=== PATIENT | female | born 1955 | race African-American/Black ===

== ENCOUNTER 2016-12-17 14:03 | Emergency (ER) | payer OTHER ==
[~2016-12-17] VITALS: Ht 154.9 cm; Wt 65.8 kg
[~2016-12-17 14:03] MED LIST: ALBUTEROL SULF8.5 GM INH; ATENOLOL; ATENOLOL50 MG PO; FUROSEMIDE40 MG PO; HYZAAR; HYZAAR 50-12.51 EACH ORAL; IBUPROFEN600 MG ORAL; IBUPROFEN600 MG PO; KEFLEX500 MG ORAL; LASIX; MACROBID100 MG ORAL; NAPROSYN500 M1 ORAL; NORCO 5-325 TA1 EACH ORAL; OMEPRAZOLE20 M2 PO; OMNIPRED10 ML OP; PRILOSEC; PRILOSEC20 MG ORAL; PROAIR HFA8.5 GM INH; ROBITUSSIN COU118 M4 PO; TEMAZEPAM15 MG ORAL; TESSALON PERLE100 M2 ORAL; ZITHROMAX250 MG ORAL; ZOFRAN4 MG ORAL
--- NOTE | 2016-12-17 14:54 | Emergency Room Report ---
History of Present Illness General Chief Complaint: Multiple Trauma/Fall Source: Patient Present Illness HPI Patient presents with reports of a fall she states that she was going up some stairs she fell backwards hitting left side of her body This happened on Saturday Patient complains mainly of pain to the left shoulder Left lower back area Denies any loss of consciousness Denies any vomiting or diarrhea denies any fevers or chills Describes a fairly purely mechanical fall in nature Allergies: Coded Allergies: NATALIE INHIBITORS (Verified Allergy, Unknown, Anaphylaxis, 09/01/15) Swollen tongue, SOB IBUPROFEN (Verified Allergy, Unknown, 06/12/16) Patient History Past Medical History: see triage record Pertinent Family History: none Reviewed Nursing Documentation: PMH: Agreed, PSxH: Agreed Nursing Documentation-PMH Hx Cardiac Problems: No Hx Hypertension: Yes Hx Asthma: Yes Hx Diabetes: No Hx Gastrointestinal Problems: Yes - unspecified Review of Systems All Other Systems: negative except mentioned in HPI Physical Exam Vital Signs Date Time Temp Pulse Resp B/P Pulse Ox O2 Delivery O2 Flow Rate FiO2 12/17/16 14:29 98.1 75 16 148/76 99 Room Air Sp02 EP Interpretation: reviewed, normal General Appearance: well appearing, no apparent distress Head: normocephalic, atraumatic Eyes: bilateral eye EOMI, bilateral eye PERRL ENT: hearing grossly normal, normal pharynx, TMs + canals normal, uvula midline Neck: full range of motion, supple, no meningismus, no bony tend Respiratory: lungs clear, normal breath sounds, no rhonchi, no respiratory distress, no retraction, no accessory muscle use Cardiovascular #1: normal peripheral pulses, regular rate, rhythm, no edema, no gallop, no JVD, no murmur Gastrointestinal: normal bowel sounds, non tender, soft, no mass, no organomegaly, non-distended, no guarding, no hernia, no pulsatile mass, no rebound Genitourinary: no CVA tenderness Musculoskeletal: other - Minor bruising is noted to the left anterior shoulder patient is able to flex however has tenderness on palpation of the proximal anterior area, discomfort also in the left paraspinal L1-L2 region, mild ecchymosis left lower abdomen, inguinal region, Neurologic: oriented x3, responsive, sample processor III-XII nml as tested, sensory intact , other - Patient has previous trauma to the ankle, otherwise ambulate with a walker without any obvious focal deficit Psychiatric: mood/affect normal Skin: warm/dry, palpation normal Lymphatic: normal inspection, no adenopathy Medical Decision Making Diagnostic Impression: Primary Impression: Multiple injuries due to trauma Additional Impressions: Shoulder contusion Back contusion ER Course Given the patient's complaints imaging studies were obtained No obvious acute pathology is found patient is ambulating And stable for close outpatient followup Other X-Ray Diagnostic Results Other X-Ray Diagnostic Results #1: EP Interpretation: Yes Findings: no fractures, no dislocation, no soft tissue swelling Number of Views: 3 - left shoulder Other X-Ray Diagnostic Results #2: EP Interpretation: Yes Findings: no fractures, no dislocation, no soft tissue swelling Number of Views: 3 - L. spine Last Vital Signs Date Time Temp Pulse Resp B/P Pulse Ox O2 Delivery O2 Flow Rate FiO2 12/17/16 14:29 98.1 75 16 148/76 99 Room Air Status: improved Disposition: HOME, SELF-CARE Condition: Improved Scripts Acetaminophen With Codeine (T#3) (TYLENOL #3 TAB*) Y Tab 1 TAB ORAL Q8H Y for For Pain, #10 TAB Prov: SAVANAH BETHEA D.O. 12/17/16 Additional Instructions: Patient is provided with the discharge instructions notified to follow up with primary doctor in the next 2-3 days otherwise return to the er with any worsening symptoms. Please note that this report is being documented using AfterSte[employer] technology. This can lead to erroneous entry secondary to incorrect interpretation by the dictating instrument. SAVANAH BETHEA D.O. Dec 17, 2016 14:54
[2016-12-17] MEDS ORDERED: ACETAMINOPHEN-1 EAC1 ORAL (16:01)
[2016-12-17 16:24] VITALS: BP 145/76
--- NOTE | 2016-12-17 16:27 | Diagnostic Imaging Report ---
Indication: Pain Findings: 3 views of the left shoulder were obtained. Alignment of the left shoulder is normal. No acute fracture is identified. Soft tissues are unremarkable. Impression: Negative left shoulder examination
--- NOTE | 2016-12-17 16:27 | Diagnostic Imaging Report ---
Indication: Back pain Comparison: None Findings: 3 views of the lumbar spine were obtained. Multilevel narrowing of intervertebral disks and associated endplate and Facet osteophytes are present. No malalignment identified. The bones are osteopenic. No acute fracture definitely seen. Impression: Moderate spondylosis. No acute injury appreciated.
[2016-12-17] MEDS ORDERED: Norco 5mg/325mg tab ORAL ONE (16:30)
== END 2016-12-17 16:30 | disposition home or self-care (01) ==
LOC: EMR 15:44
DX: S40.012A Contusion of left shoulder, initial encounter (principal); I10 Essential (primary) hypertension; Z88.6 Allergy status to analgesic agent; W19.XXXA Unspecified fall, initial encounter; Y93.9 Activity, unspecified; Y92.9 Unspecified place or not applicable; S30.0XXA Contusion of lower back and pelvis, initial encounter
CPT/HCPCS: 72020; 99284

== ENCOUNTER 2016-12-24 23:54 | Emergency (ER) | payer OTHER ==
[~2016-12-24] VITALS: Ht 154.9 cm; Wt 65.8 kg
[~2016-12-24 23:54] MED LIST changes: +ACETAMINOPHEN-1 EAC1 ORAL
[2016-12-25 00:45] VITALS: BP 157/90
[2016-12-25] MEDS ORDERED: Oxycodone/Acetaminophen 5-325 ORAL ONE (00:45)
[2016-12-25] MEDS ORDERED: TdaP Vaccine 0.5ml Syr IM ONE (00:45)
[2016-12-25] MEDS ORDERED: SILVADENE20 GM TP (01:19)
[2016-12-25] MEDS ORDERED: COLACE100 MG ORAL (01:22)
[2016-12-25] MEDS ORDERED: PERCOCET 5-3251 EACH ORAL (01:22)
[2016-12-25] MEDS ORDERED: Silver Sulfadiazine Cream 25gm TOPIC ONE (01:30)
[2016-12-25 01:45] VITALS: BP 155/89
[2016-12-25 02:00] VITALS: BP 155/89
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
== END 2016-12-25 02:05 | disposition home or self-care (01) ==
LOC: EMR 12-25 00:43
DX: T22.00XA Burn of unspecified degree of shoulder and upper limb, except wrist and hand, unspecified site, initial encounter (principal); T24.002A Burn of unspecified degree of unspecified site of left lower limb, except ankle and foot, initial encounter; T31.0 Burns involving less than 10% of body surface; J45.909 Unspecified asthma, uncomplicated; I10 Essential (primary) hypertension; Z88.6 Allergy status to analgesic agent; Z88.8 Allergy status to other drugs, medicaments and biological substances; Z23 Encounter for immunization; X11.8XXA Contact with other hot tap-water, initial encounter; Y92.9 Unspecified place or not applicable; Y99.8 Other external cause status
CPT/HCPCS: 90471; 90715; 99284

== ENCOUNTER 2017-01-05 05:38 | Emergency (ER) | payer OTHER ==
[~2017-01-05] VITALS: Ht 154.9 cm; Wt 65.8 kg
[~2017-01-05 05:38] MED LIST changes: +COLACE100 MG ORAL; +PERCOCET 5-3251 EACH ORAL; +SILVADENE20 GM TP
[2017-01-05 05:55] VITALS: BP 159/80
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
[2017-01-05] MEDS ORDERED: NORCO 5-325 TA1 EACH ORAL (06:43)
[2017-01-05 07:23] VITALS: BP 161/81
[2017-01-05 07:24] VITALS: BP 159/80
--- NOTE | 2017-01-05 09:32 | Diagnostic Imaging Report ---
Indication: PAIN Technique: XRAY FOOT MIN 3V LEFT Comparison: None. Findings: The bones are intact. There is no fracture or bone destruction. The visualized joints are normal. There may be a mild bunion deformity of the first metatarsal with soft tissue swelling. Impression: Mild bunion deformity of the first metatarsal with soft tissue swelling. Otherwise negative.
--- NOTE | 2017-01-05 09:32 | Diagnostic Imaging Report ---
Indication: PAIN Technique: XRAY ANKLE MIN 3VWS LEFT Comparison: None. Findings: The bones are intact. There is no fracture or bone destruction. The visualized joints are normal. The soft tissues are unremarkable. Impression: Negative examination.
== END 2017-01-05 07:29 | disposition home or self-care (01) ==
LOC: EMR 06:19
DX: S93.402A Sprain of unspecified ligament of left ankle, initial encounter (principal); S93.602A Unspecified sprain of left foot, initial encounter; X50.1XXA Overexertion from prolonged static or awkward postures, initial encounter; Y92.9 Unspecified place or not applicable; I10 Essential (primary) hypertension; J45.909 Unspecified asthma, uncomplicated; Z88.6 Allergy status to analgesic agent; Z88.8 Allergy status to other drugs, medicaments and biological substances
CPT/HCPCS: 29540; 99284

== ENCOUNTER 2017-01-17 14:16 | Inpatient (IN) | payer OTHER ==
[~2017-01-17] VITALS: Ht 154.9 cm; Wt 65.8 kg
[2017-01-17] MEDS ORDERED: Tylenol #3 tab (300mg/30mg) ORAL ONE (15:00)
[2017-01-17] MEDS ORDERED: Solu-MEDROL 125mg Inj IVP ONE (15:00)
--- NOTE | 2017-01-17 15:04 | Emergency Room Report ---
History of Present Illness General Chief Complaint: Upper Respiratory Illness Source: Patient, Medical Record Present Illness HPI 61 YO F with "asthma" presents for 1 week SOB, cough, chills. hasnt been able to see PMD. Ran out of inhaler. No sick contacts. C/o bilateral ear pressure , sore throat, sinus congestion. Not taking any meds. Allergies: Coded Allergies: NATALIE INHIBITORS (Verified Allergy, Unknown, Anaphylaxis, 09/01/15) Swollen tongue, SOB IBUPROFEN (Verified Allergy, Unknown, 06/12/16) Patient History Past Medical History: COPD Past Surgical History: none Pertinent Family History: none Social History: Denies: alcohol use, drug use, smoking Now: No Immunizations: UTD Reviewed Nursing Documentation: PMH: Agreed, PSxH: Agreed Nursing Documentation-PMH Hx Cardiac Problems: No Hx Hypertension: Yes Hx Asthma: Yes Hx Diabetes: No Review of Systems All Other Systems: negative except mentioned in HPI Physical Exam Vital Signs Date Time Temp Pulse Resp B/P Pulse Ox O2 Delivery O2 Flow Rate FiO2 01/17/17 14:25 98.1 69 16 150/89 99 Room Air Sp02 EP Interpretation: reviewed, abnormal General Appearance: normal inspection, well appearing, no apparent distress, alert, GCS 15, non-toxic Head: normocephalic, atraumatic Eyes: bilateral eye EOMI, bilateral eye PERRL ENT: normal ENT inspection, hearing grossly normal, normal pharynx, no angioedema, normal voice, TMs + canals normal, uvula midline, moist mucus membranes, nasal congestion Neck: normal inspection, full range of motion, supple, no bony tend Respiratory: normal inspection, lungs clear, normal breath sounds, no respiratory distress, no retraction, no accessory muscle use, rhonchi, speaking full sentences, wheezing Cardiovascular #1: regular rate, rhythm, no edema Gastrointestinal: normal inspection, normal bowel sounds, non tender, soft, no guarding, no hernia Genitourinary: no CVA tenderness Musculoskeletal: normal inspection, back normal, normal range of motion, Giulia' s Sign negative Neurologic: normal inspection, alert, oriented x3, responsive, grain origination specialist III-XII nml as tested, motor strength/tone normal, speech normal Psychiatric: normal inspection, judgement/insight normal, mood/affect normal Skin: normal inspection, normal color, no rash Lymphatic: normal inspection Medical Decision Making Diagnostic Impression: Primary Impression: COPD exacerbation Additional Impression: Upper respiratory infection Qualified Codes: J06.9 - Acute upper respiratory infection, unspecified; B97.89 - Other viral agents as the cause of diseases classified elsewhere ER Course 61 YOF with COPD exac in setting of URI symptoms. VS afebrile. Mild HTN Labs: No leuks. H&h stable. Trop normal. CXR: No obvious PNA or pulm congestion. COPD exac - Improved with nebs, empiric Azitrho - No leuks or PNA on CXR Per Admit office, patient insurance is [employer] Dr Mccollum signal and communications maintainer for today but states "we dont do [employer]." Patient likely [facility] only. Patient of Dr Briones, who is PMD Endorsed to Dr Ceja at 406pm for tele admission EKG Diagnostic Results Rate: normal Rhythm: NSR ST Segments: other Rhythm Strip Diag. Results EP Interpretation: yes Rate: 62 Rhythm: NSR, no PVC's, no ectopy Chest X-Ray Diagnostic Results EP Interpretation: Yes Findings: no consolidation, no effusion, no pneumothorax, no acute cardiopulmonary disease Number of Views: 1 Last Vital Signs Date Time Temp Pulse Resp B/P Pulse Ox O2 Delivery O2 Flow Rate FiO2 01/17/17 14:25 98.1 69 16 150/89 99 Room Air Status: improved Disposition: ADMITTED INPATIENT Condition: Serious Referrals: NON PHYSICIAN (PCP) THADDEUS BAILEY M.D. Jan 17, 2017 15:04
[2017-01-17] MEDS: Ipratropium 0.02% Inh Soln 2.5ml UD HHN SCH ×3 (15:16→15:51)
[2017-01-17] MEDS: Albuterol ud Inhalation HHN SCH ×3 (15:16→15:51)
[2017-01-17 15:36] VITALS: BP 155/84
[2017-01-17 15:52] LABS: EOSINOPHILS % (AUTO) 1.5 % (0.0-3.0); LYMPHOCYTES % (AUTO) 35.2 % (20.0-45.0); MEAN CORPUSCULAR HEMOGLOBIN 28.6 PG (27.0-31.0); MEAN CORPUSCULAR HGB CONC 31.5 G/DL (32.0-36.0); MEAN CORPUSCULAR VOLUME 91 FL (80-99); MEAN PLATELET VOLUME 7.6 FL (6.5-10.1); MONOCYTES % (AUTO) 10.2 % (1.0-10.0); NEUTROPHILS % (AUTO) 52.2 % (45.0-75.0); PLATELET COUNT 292 K/UL (150-450); RED BLOOD COUNT 4.62 M/UL (4.20-5.40); RED CELL DISTRIBUTION WIDTH 12.3 % (11.6-14.8); WHITE BLOOD COUNT 5.6 K/UL (4.8-10.8)
--- NOTE | 2017-01-17 15:54 | Diagnostic Imaging Report ---
Indication: Chest Pain Comparison: 07/22/14 A single view chest radiograph was obtained. Findings: No definite infiltrate or pulmonary vascular congestion identified. The heart is enlarged. The aorta is mildly enlarged consistent with atherosclerotic vascular disease. The bones are osteopenic. Impression: No acute disease
[2017-01-17 16:10] LABS: ALANINE AMINOTRANSFERASE 10 U/L (3-33); ASPARTATE AMINO TRANSFERASE 17 U/L (5-40); CALCIUM 9.8 mg/dL (8.6-10.2); CARBON DIOXIDE 30 mEQ/L (20-30); CREATININE 0.7 mg/dL (0.5-0.9); GLOMERULAR FILTRATION RATE > 60 mL/min (>60); HEMOLYSIS 0; TOTAL PROTEIN 7.6 g/dL (6.6-8.7)
[2017-01-17 16:11] LABS: ANION GAP 13 (5-15); CHLORIDE 100 mEQ/L (98-107); POTASSIUM 4.7 mEQ/L (3.4-4.9); SODIUM 143 mEQ/L (135-145)
[2017-01-17] MEDS ORDERED: TEMAZEPAM15 MG ORAL (16:22)
[2017-01-17] MEDS ORDERED: VITAMIN D250000 UNI1 ORAL (16:23)
[2017-01-17 16:25] LABS: TROPONIN I < 0.30 ng/mL (<=0.30)
[2017-01-17] MEDS ORDERED: FUROSEMIDE20 M1 ORAL (16:43)
[2017-01-17 16:59] LABS: CKMB 3.5 ng/mL (< 3.8)
[2017-01-17 18:10] VITALS: BP 132/60
[2017-01-17] MEDS ORDERED: Acetaminophen 500mg (ES) tab ORAL PRN (18:30)
[2017-01-17] MEDS: DuoNeb 0.5-3(2.5)mg/3ml neb HHN SCH ×3 (19:00→23:54)
[2017-01-17] MEDS: Norco 5mg/325mg tab ORAL PRN (19:17)
[2017-01-17] MEDS ORDERED: cefTRIAXone 1 GM in D5W 55 ML IVPB SCH (19:30)
[2017-01-17 20:00] VITALS: BP 156/96
[2017-01-17] MEDS ORDERED: Silver Sulfadiazine Cream 25gm TOPIC SCH (21:00)
[2017-01-17] MEDS: Solu-MEDROL 125mg Inj IVP SCH (22:25)
[2017-01-17] MEDS: cefTRIAXone 1 GM in D5W 55 ML IVPB SCH (22:26)
[2017-01-17] MEDS: Heparin 5000 units/ml inj SUBQ SCH (22:28)
[2017-01-18 00:43] VITALS: BP 156/92
[2017-01-18] MEDS: Norco 5mg/325mg tab ORAL PRN (03:22)
[2017-01-18] MEDS: DuoNeb 0.5-3(2.5)mg/3ml neb HHN SCH ×6 (03:27→23:03)
[2017-01-18 04:20] VITALS: BP 131/76
[2017-01-18] MEDS: Solu-MEDROL 125mg Inj IVP SCH ×3 (05:42→22:22)
[2017-01-18 08:07] VITALS: BP 138/71
[2017-01-18] MEDS: Bystolic 2.5mg Tab ORAL SCH (08:56)
[2017-01-18] MEDS: Hyzaar 12.5mg/50mg tab ORAL SCH (08:57)
[2017-01-18] MEDS: Silver Sulfadiazine Cream 25gm TOPIC SCH ×2 (08:58→17:47)
[2017-01-18] MEDS: Heparin 5000 units/ml inj SUBQ SCH ×2 (09:05→22:28)
[2017-01-18 11:29] VITALS: BP 149/85
[2017-01-18 16:00] VITALS: BP 132/72
--- NOTE | 2017-01-18 16:58 | History and Physical Report ---
DATE OF ADMISSION: 01/17/2017 CHIEF COMPLAINT: Asthma exacerbation. HISTORY OF PRESENT ILLNESS: The patient is a 67-year-old female. She has a history of hypertensive heart disease and asthma. She presented with complaints of one week of shortness of breath. According to the patient, she had a cold approximately a week ago and developed progressive shortness of breath. She ran out of her inhaler but was unable to get a refill from her primary care doctor or an appointment. She presented to the emergency room because of persistent shortness of breath. She was noted to have diffuse wheezing. She was given intravenous steroids and breathing treatments without improvement. She is therefore admitted for further evaluation and care. PAST MEDICAL HISTORY: As above. PAST SURGICAL HISTORY: Includes appendectomy, tonsillectomy, bilateral arthroscopic knee surgery, arthroscopic ankle surgery, bunionectomy. CURRENT MEDICATIONS: Reconciled and reviewed. ALLERGIES: NATALIE inhibitors, ibuprofen. FAMILY HISTORY: Noncontributory. SOCIAL HISTORY: Negative for tobacco, ethanol, or drugs. REVIEW OF SYSTEMS: Negative except for wheezing and shortness of breath. PHYSICAL EXAMINATION: VITAL SIGNS: Temperature 97.5, pulse 73, respirations 18, and blood pressure 138/71. GENERAL: The patient well-developed, no apparent distress. She is able to speak in full sentences. NECK: Supple. HEART: Regular rate and rhythm. LUNGS: Significant for diffuse wheezes. ABDOMEN: Soft, nontender, and nondistended. EXTREMITIES: Without clubbing, cyanosis, or edema. LABORATORY DATA: White count 5, hemoglobin 13, hematocrit 41, platelets 292,000. Sodium 143, potassium 4.7. Troponin was 0.3. Chest x-ray was clear. ASSESSMENT: 1. This is a pleasant female admitted with asthma exacerbation asthma exacerbation. 2. Hypertensive heart disease. PLAN: 1. IV steroids and respiratory treatments. 2. We will discontinue beta joanne in light of patient's bronchospasm and switch to Bystolic. 3. Oral antibiotic therapy 4. Respiratory treatments. 5. DVT and stress ulcer prophylaxis. Kleber Ceja M.D. DR: Rohit JOB#: [id number] CC:
[2017-01-18 20:00] VITALS: BP 107/55
[2017-01-18] MEDS: cefTRIAXone 1 GM in D5W 55 ML IVPB SCH (22:30)
[2017-01-18] MEDS: Oxycodone/Acetaminophen 5-325 ORAL PRN (22:42)
[2017-01-19] VITALS (7 sets, daily range): BP systolic 110–154; BP diastolic 59–78
[2017-01-19] MEDS: Zolpidem 5mg tab ORAL PRN ×2 (01:06→01:07)
[2017-01-19] MEDS: DuoNeb 0.5-3(2.5)mg/3ml neb HHN SCH ×6 (03:16→23:35)
[2017-01-19] MEDS: Solu-MEDROL 125mg Inj IVP SCH (06:23)
[2017-01-19] MEDS: Hyzaar 12.5mg/50mg tab ORAL SCH (08:37)
[2017-01-19] MEDS: Bystolic 2.5mg Tab ORAL SCH (08:37)
[2017-01-19] MEDS: Silver Sulfadiazine Cream 25gm TOPIC SCH ×2 (08:38→17:53)
--- NOTE | 2017-01-19 08:39 | General Progress Note ---
Assessment/Plan Problem List: (1) Asthma ICD Codes: J45.909 - Unspecified asthma, uncomplicated SNOMED: 544565111 Status: stable, progressing Assessment/Plan wean iv steroids resp rx dvt/.stress ulcer prophyalxis abx for pna Subjective ROS Limited/Unobtainable: No Constitutional: Reports: malaise, weakness HEENT: Reports: no symptoms Cardiovascular: Reports: no symptoms Respiratory: Reports: SOB with excertion, cough, wheezing Gastrointestinal/Abdominal: Reports: no symptoms Genitourinary: Reports: no symptoms Neurologic/Psychiatric: Reports: no symptoms Endocrine: Reports: no symptoms Hematologic/Lymphatic: Reports: no symptoms Allergies: Coded Allergies: NATALIE INHIBITORS (Verified Allergy, Unknown, Anaphylaxis, 09/01/15) Swollen tongue, SOB IBUPROFEN (Verified Allergy, Unknown, ITCHING, 01/17/17) All Systems: reviewed and negative except above Subjective less sob. less wheezing. feels "a little better." Objective Last 24 Hour Vital Signs Date Time Temp Pulse Resp B/P Pulse Ox O2 Delivery O2 Flow Rate FiO2 01/19/17 08:05 74 16 98 Room Air 01/19/17 04:00 97.0 71 18 110/59 99 Room Air 01/19/17 03:59 89 01/19/17 03:24 73 16 99 Room Air 01/19/17 03:16 73 16 95 Room Air 01/19/17 00:00 97.9 80 18 112/61 98 Room Air 01/18/17 23:10 92 16 99 Room Air 01/18/17 23:02 90 16 98 Room Air 01/18/17 20:00 80 18 107/55 95 Room Air 01/18/17 19:56 90 01/18/17 19:16 82 16 98 Room Air 01/18/17 19:08 81 16 96 Room Air 01/18/17 16:00 98.2 81 18 132/72 97 Room Air 01/18/17 16:00 94 01/18/17 15:32 74 15 100 Room Air 01/18/17 15:28 21 01/18/17 15:28 69 15 97 Room Air 01/18/17 12:36 96 01/18/17 11:29 97.3 81 18 149/85 99 Room Air 01/18/17 11:24 72 15 99 Room Air 17 11:18 67 15 97 Room Air 21 01/18/17 11:18 21 01/18/17 08:57 138/71 Intake and Output 01/18/17 01/19/17 19:00 07:00 Intake Total 570 ml Balance 570 ml Intake Oral 570 ml # Voids 4 Height (Feet): 5 Height (Inches): 1.00 Weight (Pounds): 145 General Appearance: WD/WN, alert Neck: supple Cardiovascular: regular rhythm Respiratory/Chest: expiratory wheezing Abdomen: normal bowel sounds, non tender, soft, no organomegaly Edema: no edema noted Arm (L), no edema noted Arm (R), no edema noted Leg (L), no edema noted Leg (R), no edema noted Pedal (L), no edema noted Pedal (R), no edema noted Generalized Neurologic: grinder gear II-XII grossly normal, no motor/sensory deficits, alert, oriented x 3, responsive NIDA PRITCHETT Jan 19, 2017 08:39
[2017-01-19] MEDS: Heparin 5000 units/ml inj SUBQ SCH ×2 (08:43→21:30)
[2017-01-19] MEDS ORDERED: Solu-MEDROL 125mg Inj IVP SCH ×2 (09:00→18:00)
[2017-01-19] MEDS: Norco 5mg/325mg tab ORAL PRN (13:18)
[2017-01-19 16:03] LABS: TROPONIN I < 0.30 ng/mL (<=0.30)
--- NOTE | 2017-01-19 18:56 | Cardiology Report ---
APPROVED REPORT EKG Measurement Heart [id number] ME [id number] [id number] Normal sinus rhythm Normal ECG
[2017-01-19] MEDS: cefTRIAXone 1 GM in D5W 55 ML IVPB SCH (21:29)
[2017-01-19] MEDS: Nitroglycerin Subl 0.4mg tab (Bottle Of 25) SL PRN (22:22)
[2017-01-20 00:15] VITALS: BP 145/89
[2017-01-20] MEDS: Nitroglycerin Subl 0.4mg tab (Bottle Of 25) SL PRN (03:10)
[2017-01-20] MEDS: DuoNeb 0.5-3(2.5)mg/3ml neb HHN SCH ×6 (03:17→23:50)
[2017-01-20 04:14] VITALS: BP 135/78
[2017-01-20] MEDS: Norco 5mg/325mg tab ORAL PRN (06:05)
[2017-01-20 07:57] LABS: TROPONIN I < 0.30 ng/mL (<=0.30)
--- NOTE | 2017-01-20 08:09 | General Progress Note ---
Assessment/Plan Problem List: (1) Asthma ICD Codes: J45.909 - Unspecified asthma, uncomplicated SNOMED: 510791542 Status: stable, progressing Assessment/Plan wean iv steroids resp rx dvt/.stress ulcer prophyalxis abx for pna Subjective ROS Limited/Unobtainable: No Constitutional: Reports: malaise, weakness HEENT: Reports: no symptoms Cardiovascular: Reports: chest pain Respiratory: Reports: cough, shortness of breath, wheezing Gastrointestinal/Abdominal: Reports: no symptoms Genitourinary: Reports: no symptoms Neurologic/Psychiatric: Reports: no symptoms Endocrine: Reports: no symptoms Hematologic/Lymphatic: Reports: no symptoms Allergies: Coded Allergies: NATALIE INHIBITORS (Verified Allergy, Unknown, Anaphylaxis, 09/01/15) Swollen tongue, SOB IBUPROFEN (Verified Allergy, Unknown, ITCHING, 01/17/17) All Systems: reviewed and negative except above Subjective less sob. less wheezing. feels "a little better." had intermittent stabing chest pain lasting seconds ekg negative trop negative Objective Last 24 Hour Vital Signs Date Time Temp Pulse Resp B/P Pulse Ox O2 Delivery O2 Flow Rate FiO2 01/20/17 06:48 76 16 99 Room Air 01/20/17 06:45 75 16 98 Room Air 01/20/17 04:14 98.3 69 18 135/78 96 Room Air 01/20/17 04:00 81 01/20/17 03:25 75 16 99 Room Air 01/20/17 03:17 80 16 94 Room Air 01/20/17 03:10 140/80 01/20/17 00:15 97.3 71 19 145/89 95 Room Air 01/20/17 00:00 80 01/19/17 23:44 71 16 99 Room Air 01/19/17 23:36 71 16 97 Room Air 01/19/17 22:22 128/79 01/19/17 20:00 74 01/19/17 20:00 97.0 72 19 135/76 97 Room Air 01/19/17 19:46 72 18 99 Room Air 01/19/17 19:38 72 16 95 Room Air 01/19/17 16:00 92 01/19/17 16:00 97.9 70 21 148/78 98 Room Air 01/19/17 14:49 73 18 99 Room Air 01/19/17 14:39 70 18 98 Room Air 21 01/19/17 14:38 154/78 98 Room Air 01/19/17 12:00 98.2 83 20 135/71 98 Room Air 01/19/17 10:46 75 16 98 Room Air 21 01/19/17 10:36 72 16 96 Room Air 21 01/19/17 08:37 110/59 01/19/17 08:15 79 16 99 Room Air 21 Intake and Output 01/19/17 01/20/17 19:00 07:00 Intake Total 600 ml 455 ml Balance 600 ml 455 ml Intake Oral 600 ml 400 ml IV Total 55 ml # Voids 8 5 Laboratory Tests 01/19/17 15:20: Troponin I < 0.30 01/20/17 04:50: Troponin I < 0.30 Height (Feet): 5 Height (Inches): 1.00 Weight (Pounds): 145 NIDA PRITCHETT Jan 20, 2017 08:09
[2017-01-20 08:31] VITALS: BP 138/77
[2017-01-20] MEDS: Hyzaar 12.5mg/50mg tab ORAL SCH (08:37)
[2017-01-20] MEDS: Bystolic 2.5mg Tab ORAL SCH (08:37)
[2017-01-20] MEDS: Silver Sulfadiazine Cream 25gm TOPIC SCH ×2 (08:40→18:35)
[2017-01-20] MEDS: Heparin 5000 units/ml inj SUBQ SCH ×2 (08:40→22:04)
[2017-01-20] MEDS ORDERED: Solu-MEDROL 40mg Inj IVP SCH (09:00)
[2017-01-20] MEDS: Oxycodone/Acetaminophen 5-325 ORAL PRN ×3 (09:35→23:11)
[2017-01-20 12:00] VITALS: BP 119/74
[2017-01-20] MEDS ORDERED: Nitroglycerin Subl 0.4mg tab (Bottle Of 25) SL PRN (13:45)
[2017-01-20] MEDS ORDERED: Acetaminophen 500mg (ES) tab ORAL PRN (14:30)
[2017-01-20] MEDS: Docusate 100mg tablet ORAL SCH (15:46)
[2017-01-20 16:00] VITALS: BP 106/62
[2017-01-20] MEDS ORDERED: Norco 5mg/325mg tab ORAL PRN (18:30)
[2017-01-20] MEDS ORDERED: Oxycodone/Acetaminophen 5-325 ORAL PRN (18:30)
--- NOTE | 2017-01-20 18:47 | Cardiology Report ---
APPROVED REPORT EKG Measurement Heart [id number] QT0T0 QTc0 No QRS complexes found, no ECG analysis possible
[2017-01-20 20:00] VITALS: BP 132/73
[2017-01-20] MEDS ORDERED: cefTRIAXone 1 GM in D5W 55 ML IVPB SCH (22:00)
[2017-01-21] VITALS: BP 111/55
[2017-01-21] MEDS ORDERED: Zolpidem 5mg tab ORAL PRN (00:30)
[2017-01-21] MEDS: DuoNeb 0.5-3(2.5)mg/3ml neb HHN SCH ×4 (03:28→14:39)
[2017-01-21 04:00] VITALS: BP_SYST 124; BP_SYST 160; BP_DIAS 72; BP_DIAS 82
--- NOTE | 2017-01-21 04:44 | Emergency Room Report ---
History of Present Illness General Chief Complaint: Upper Respiratory Illness Source: Patient, Medical Record Present Illness Allergies: Coded Allergies: NATALIE INHIBITORS (Verified Allergy, Unknown, Anaphylaxis, 09/01/15) Swollen tongue, SOB IBUPROFEN (Verified Allergy, Unknown, ITCHING, 01/17/17) Patient History Now: No Nursing Documentation-PMH Hx Cardiac Problems: No Hx Hypertension: Yes Hx Asthma: Yes Hx Diabetes: No Physical Exam Vital Signs Date Time Temp Pulse Resp B/P Pulse Ox O2 Delivery O2 Flow Rate FiO2 01/17/17 14:25 98.1 69 16 150/89 99 Room Air 01/17/17 15:16 21 Procedures Additional Procedure Procedure Narrative Wound exploration Patient placed in prone position. Left foot trach and prepped in sterile fashion. I anesthetized the area using lidocaine. Using a scalpel I made an incision at the area of the foreign body. Using forceps I opened the wound and remove the foreign body. Patient tolerated procedure without complication. Medical Decision Making Diagnostic Impression: Primary Impression: COPD exacerbation Additional Impression: Upper respiratory infection Qualified Codes: J06.9 - Acute upper respiratory infection, unspecified; B97.89 - Other viral agents as the cause of diseases classified elsewhere ER Course I was called to evaluate this patient. Patient had apparently stepped on the floor and felt some broken glass get in to her left foot. Patient feels a shard of glass in her left foot. X-ray show no evidence of foreign body. When I went to evaluate the patient I do identify a small piece of foreign body embedded in the sole of the foot. I anesthetized the area using lidocaine. Using a scalpel I made a small incision at the area of the foreign body. Using forceps I am able to open up the wound and pull out the foreign body without difficulty Wound is cleaned and dressed. Last Vital Signs Date Time Temp Pulse Resp B/P Pulse Ox O2 Delivery O2 Flow Rate FiO2 01/21/17 03:25 79 16 97 Room Air 21 01/21/17 00:00 97.3 111/55 Status: improved Disposition: ADMITTED INPATIENT Condition: Serious Referrals: NON PHYSICIAN (PCP) TAYLOR LOUISE M.D. Jan 21, 2017 04:44
[2017-01-21] MEDS ORDERED: BYSTOLIC 2.5MG2.5 MG ORAL (07:49)
[2017-01-21 08:00] VITALS: BP 132/77
[2017-01-21] MEDS ORDERED: Hyzaar 12.5mg/50mg tab ORAL SCH (09:00)
[2017-01-21] MEDS ORDERED: Vitamin D 50,000 units cap ORAL SCH ×2 (09:00)
[2017-01-21] MEDS ORDERED: Solu-MEDROL 40mg Inj IVP SCH (09:00)
[2017-01-21] MEDS ORDERED: Bystolic 2.5mg Tab ORAL SCH (09:00)
[2017-01-21] MEDS: Docusate 100mg tablet ORAL SCH (09:16)
[2017-01-21] MEDS: Oxycodone/Acetaminophen 5-325 ORAL PRN (09:18)
[2017-01-21] MEDS: Silver Sulfadiazine Cream 25gm TOPIC SCH (09:18)
[2017-01-21] MEDS: Heparin 5000 units/ml inj SUBQ SCH (09:21)
[2017-01-21 12:00] VITALS: BP 130/73
--- NOTE | 2017-01-21 12:14 | Diagnostic Imaging Report ---
Indication: Pain, suspected foreign body Technique: 3 views left foot Comparison: none Findings: There are mild degenerative changes of the first the tarsal phalangeal joint. No radiopaque foreign body demonstrated. No acute fractures. No dislocations. Joint spaces are preserved. Impression: Mild degenerative changes No acute bony trauma or evidence of radiopaque foreign body This agrees with the preliminary interpretation provided overnight by [facility] service.
--- NOTE | 2017-01-21 21:18 | Discharge Summary ---
DATE OF ADMISSION: 01/17/2017 DATE OF DISCHARGE: 01/21/2017 ADMISSION DIAGNOSES: 1. Asthma exacerbation. 2. Hypertension. 3. Bronchitis. 4. Status post foreign body removal from left foot DISCHARGE DIAGNOSES: 1. Asthma exacerbation. 2. Hypertension. 3. Bronchitis. 4. Status post foreign body removal from left foot. HOSPITAL COURSE: The patient is a very pleasant female who presented with asthma exacerbation. She was admitted. She received IV steroids and antibiotic therapy. X-ray was negative. She had slow improvement in her asthma. Hospital course was complicated by her stepping on a piece of glass that was removed by the ER doctor. There are no signs of infection. On discharge, the patient was stable. DISCHARGE MEDICATIONS: Please see discharge medication list for discharge medications. DIET: Cardiac diet. ACTIVITY: Ad-Emily. FOLLOWUP: The patient to follow up with PMD in one to two weeks. Kleber Ceja M.D. DR: Christi JOB#: [id number] CC:
--- NOTE | 2017-01-22 09:35 | Diagnostic Imaging Report ---
Indication: Trauma, suspected foreign body Technique: 3 views left foot Comparison: none Findings: There is hallux valgus and mild bunion formation. No acute fractures. No dislocations. Joint spaces are preserved. No radiopaque foreign body demonstrated Impression: Negative
== END 2017-01-21 16:00 | disposition home or self-care (01) | DRG 141 ==
LOC: EMR 14:50 → 2E 14:56 → EDBEDREQ 16:12 → 4E 01-20 13:41
PROC: 0HCNXZZ Extirpation of Matter from Left Foot Skin, External Approach (ICD-10-PCS; principal; 2017-01-21)
DX: J45.901 Unspecified asthma with (acute) exacerbation (principal); I11.9 Hypertensive heart disease without heart failure; J40 Bronchitis, not specified as acute or chronic; Z88.6 Allergy status to analgesic agent; Z88.8 Allergy status to other drugs, medicaments and biological substances; S91.342A Puncture wound with foreign body, left foot, initial encounter; X58.XXXA Exposure to other specified factors, initial encounter
CPT/HCPCS: 36415; 71010; 80053; 82550; 82553; 84484; 85025; 93005; 94640; 94664; J7620

== ENCOUNTER 2019-03-15 08:07 | Emergency (ER) | payer OTHER ==
[~2019-03-15] VITALS: Ht 154.9 cm; Wt 77.1 kg
[~2019-03-15 08:07] MED LIST changes: +BYSTOLIC 2.5MG2.5 MG ORAL; +FUROSEMIDE20 M1 ORAL; +VITAMIN D250000 UNI1 ORAL
[2019-03-15] MEDS ORDERED: ZANTAC150 MG ORAL (08:25)
[2019-03-15] MEDS ORDERED: LORATADINE10 M1 PO (08:25)
[2019-03-15] MEDS ORDERED: ATORVASTATIN CA10 MG ORAL (08:26)
[2019-03-15] MEDS ORDERED: CLOTRIMAZOLE15 GM TOPIC (08:26)
[2019-03-15] MEDS ORDERED: COMBIVENT RESPIM4 GM IH (08:27)
--- NOTE | 2019-03-15 08:34 | NUR ---
ED Nurse Note: pt states michael jumped on her for a hug and she heard a popping sound fron left knee now has pain. awaiting korey neil. will monitor.
[2019-03-15] MEDS ORDERED: Tylenol #3 tab (300mg/30mg) PO ONE (08:45)
--- NOTE | 2019-03-15 09:06 | NUR ---
ED Nurse Note: pt medicated and provided with a blanket. Pt awaiting x-ray.
[2019-03-15] MEDS ORDERED: ACETAMINOPHEN-1 EAC1 ORAL (10:10)
[2019-03-15 10:19] VITALS: BP 140/89
--- NOTE | 2019-03-15 10:21 | NUR ---
ED Nurse Note: knee immobelizer applied ,pt given crutches and teaching done on crutch gait. pt also given aci and script verbalized understanding ambulated out of ed with strong crutch gait, pt picked up by daughter.
--- NOTE | 2019-03-15 11:09 | Diagnostic Imaging Report ---
INDICATION: Knee Pain COMPARISON: None 3 views of the left knee were obtained. FINDINGS: There is joint space narrowing with marginal osteophyte formation and subchondral sclerosis. No acute fracture identified. No joint effusion seen. IMPRESSION: No acute injury
--- NOTE | 2019-03-15 11:24 | Emergency Room Report ---
History of Present Illness General Chief Complaint: Lower Extremity Injury Source: Patient Present Illness HPI 63-year-old female presents ED for evaluation. Complaining of left knee pain 2 weeks. States that she twisted her knee while walking 2 weeks ago. States that she's been having persistent pain since. Feels that the knee is buckling at times. Pain is dull, 8 out of 10, nonradiating. Is able to bear weight but with difficulty. No other aggravating relieving factors. Denies any other associated symptoms Allergies: Coded Allergies: NATALIE INHIBITORS (Verified Allergy, Unknown, Anaphylaxis, 09/01/15) Swollen tongue, SOB IBUPROFEN (Verified Allergy, Unknown, ITCHING, 01/17/17) Patient History Past Medical History: none Past Surgical History: none Pertinent Family History: none Social History: Denies: smoking, alcohol use, drug use Last Menstrual Period: na Now: No Immunizations: UTD Reviewed Nursing Documentation: PMH: Agreed; PSxH: Agreed Nursing Documentation-PMH Past Medical History: No History, Except For Hx Cardiac Problems: No Hx Hypertension: Yes Hx Asthma: Yes Hx Diabetes: No Review of Systems All Other Systems: negative except mentioned in HPI Physical Exam Vital Signs Date Time Temp Pulse Resp B/P (MAP) Pulse Ox O2 Delivery O2 Flow Rate FiO2 03/15/19 08:16 98.1 79 20 98 Room Air 03/15/19 10:19 140/89 Sp02 EP Interpretation: reviewed, normal General Appearance: no apparent distress, alert, GCS 15, non-toxic Head: normocephalic, atraumatic Eyes: bilateral eye normal inspection, bilateral eye PERRL ENT: hearing grossly normal, normal pharynx, no angioedema, normal voice Neck: full range of motion, supple/symm/no masses Respiratory: normal inspection, speaking full sentences Cardiovascular #1: normal inspection Cardiovascular #2: 2+ carotid (R), 2+ carotid (L), 2+ radial (R), 2+ radial (L) , 2+ dorsalis pedis (R), 2+ dorsalis pedis (L) Gastrointestinal: normal inspection, no guarding, no rebound Rectal: deferred Genitourinary: normal inspection Musculoskeletal: back normal, gait/station normal, normal range of motion, tender - L knee Neurologic: alert, oriented x3, responsive, motor strength/tone normal, sensory intact, speech normal Psychiatric: judgement/insight normal, memory normal, mood/affect normal, no suicidal/homicidal ideation Reflexes: 3+ bicep (R), 3+ bicep (L), 3+ tricep (R), 3+ tricep (L), 3+ knee (R) , 3+ knee (L) Skin: normal color, no rash, warm/dry, well hydrated Lymphatic: normal inspection Procedures Splinting Splinting : Consent: Verbal Pre-Made Type: knee immobilizer Pre-Proc Neuro Vasc Exam: normal Post-Proc Neuro Vasc Exam: normal Patient Tolerated: Well Complications: None Medical Decision Making Diagnostic Impression: Primary Impression: Knee sprain Qualified Codes: S83.90XA - Sprain of unspecified site of unspecified knee, initial encounter ER Course Hospital Course 63 yo F presents with L knee pain s/p trip Differential diagnoses include: Fracture, dislocation, sprain, contusion Clinical course Patient placed on stretcher. After initial history and physical, I ordered pain medications and Xrays of L knee Xrays read shows DJD. no fx. no dislocation Patient states that she was told by her PMD that she would need bilateral knee replacements. Has not yet evaluated by orthopedics for this Consideration for arthropathy versus ligamentous injury. Placed in knee immobilizer given crutches. Safe for discharge with close outpatient follow-up. We'll provide orthopedic referrals Diagnosis - knee sprain Stable and discharged to home with prescription for Tylenol #3. apply ice, keep elevated. weight bear as tolerated. Followup with PMD/ortho. Return to ED if symptoms recur or worsen Other X-Ray Diagnostic Results Other X-Ray Diagnostic Results : X-Ray ordered: L knee # of Views/Limited Vs Complete: 3 View Indication: Pain EP Interpretation: Yes Interpretation: no dislocation, no soft tissue swelling, no fractures, other - joint space narrowing. Impression: Other - DJD Electronically Signed by: Electronically signed by Rolan Gregory MD Last Vital Signs Date Time Temp Pulse Resp B/P (MAP) Pulse Ox O2 Delivery O2 Flow Rate FiO2 03/15/19 10:19 98.0 89 18 140/89 99 Room Air Status: improved Disposition: HOME, SELF-CARE Condition: Stable Scripts Acetaminophen With Codeine (T#3) (TYLENOL #3 TAB*) Y Tab 1 TAB ORAL Q8H PRN for For Pain, #12 TAB Prov: Rolan Gregory MD 03/15/19 [facility] Open 24 hour /7 days a week by Appointment Only [address] [facility] [address] [facility] [address] Patient Instructions: Knee Sprain, [id number] Rolan Gregory MD March 15, 2019 11:24
== END 2019-03-15 10:23 | disposition home or self-care (01) ==
LOC: EMR 08:25
DX: S83.90XA Sprain of unspecified site of unspecified knee, initial encounter (principal); X50.1XXA Overexertion from prolonged static or awkward postures, initial encounter; Y92.9 Unspecified place or not applicable; Z88.6 Allergy status to analgesic agent; I10 Essential (primary) hypertension
CPT/HCPCS: 29505; 99283

== ENCOUNTER 2021-01-07 11:12 | Inpatient (IN) | payer MEDICARE, OTHER ==
[~2021-01-07] VITALS: Ht 160 cm; Wt 81.6 kg
[~2021-01-07 11:12] MED LIST changes: +ATORVASTATIN CA10 MG ORAL; +CLOTRIMAZOLE15 GM TOPIC; +COMBIVENT RESPIM4 GM IH; +LORATADINE10 M1 PO; +ZANTAC150 MG ORAL
[2021-01-07 11:30] VITALS: BP 130/70
[2021-01-07] MEDS ORDERED: cefTRIAXone 1 GM in NS 55 ML IVPB ONE (11:45)
[2021-01-07] MEDS ORDERED: Isovue-300 100ml vial INJ PRN (11:45)
[2021-01-07] MEDS ORDERED: Vancomycin 1.5gm/300ml Premix 300 ML IVPB ONE (11:45)
[2021-01-07] MEDS ORDERED: Morphine Sulfate 4mg/ml Inj (IV USE ONLY) IVP ONE ×2 (11:45→12:30)
--- NOTE | 2021-01-07 11:46 | Emergency Room Report ---
History of Present Illness General Chief Complaint: Skin Rash/Abscess Source: Patient Present Illness HPI Patient was seen by her dentist for possible tooth infection. She has been taking amoxicillin. The left side of her face and jaw have become more swollen and painful. She complains about 10/10 pain at this time. She denies any fevers or chills. There is no drainage from the area. Her tetanus is up-to- date. She is unable to eat well but is not having difficulty swallowing. It is more a lack of appetite and difficulty chewing. She says there is one tooth that needs to be pulled. Patient denies exposure to Covid positive contacts. She was and last admitted to the hospital for COPD. These are your discharge diagnoses from 2017: 1. Asthma exacerbation. 2. Hypertension. 3. Bronchitis. 4. Status post foreign body removal from left foot. Patient denies diabetes. She does have a history of hypertension No chest pain, palpitations, nausea, vomiting, diarrhea, dysuria, abdominal pain, shortness of breath, depression, anxiety, visual changes, dizziness, headache. Allergies: Coded Allergies: NATALIE INHIBITORS (Verified Allergy, Unknown, Anaphylaxis, 09/01/15) Swollen tongue, SOB IBUPROFEN (Verified Allergy, Unknown, ITCHING, 01/17/17) COVID-19 Screening Contact w/high risk pt: No Experienced COVID-19 symptoms?: No COVID-19 Testing performed MOVING WORKER: No Patient History Past Medical History: see triage record, HTN, asthma Social History: Denies: smoking, alcohol use, drug use Social History Narrative Brought to the hospital by her daughter Reviewed Nursing Documentation: PMH: Agreed; PSxH: Agreed Nursing Documentation-PMH Hx Cardiac Problems: No Hx Hypertension: Yes Hx Asthma: Yes Hx Diabetes: No Review of Systems All Other Systems: negative except mentioned in HPI Physical Exam Vital Signs Date Time Temp Pulse Resp B/P (MAP) Pulse Ox O2 Delivery O2 Flow Rate FiO2 01/07/21 11:21 98.4 92 18 130/70 (90) 98 Room Air Sp02 EP Interpretation: reviewed, normal General Appearance: well appearing, no apparent distress, GCS 15 Head: normocephalic Eyes: bilateral eye normal inspection, bilateral eye PERRL, bilateral eye EOMI ENT: normal pharynx, moist mucus membranes, other - Carious teeth Neck: full range of motion, supple, other - Swelling left submandibular area she is quite large with some fluctuance and pointing of the skin Respiratory: chest non-tender, lungs clear, normal breath sounds Cardiovascular #1: regular rate, rhythm, no edema Cardiovascular #2: 2+ radial (R) Gastrointestinal: normal inspection, normal bowel sounds, non tender, no mass, non-distended Musculoskeletal: back normal, normal range of motion, gait/station normal Neurologic: alert, oriented x3, grossly normal Psychiatric: mood/affect normal - And pain Skin: warm/dry, other - Swelling left submandibular area with fluctuance Procedures Laceration/Wound Repair Laceration/Wound Repair : Consent: Verbal Wound Location: face Wound's Depth, Shape: superficial Wound Length (cm): 0 - 0.5 Wound Explored: contaminated - 10 cc pus drained Anesthesia: other - lidocaine 5% topical Volume Anesthetic (ccs): 10 Sterile Dressing Applied?: Yes Patient Tolerated: Well Complications: None Medical Decision Making Diagnostic Impression: Primary Impression: Submandibular abscess ER Course Patient presents with history of a tooth infection and swelling below the left jaw on amoxicillin. Differential includes submandibular abscess, cellulitis, tooth abscess, pterygomandibular abscess amongst others. There is no airway compromise at this time however the patient presents with severe swelling which may encroach in this area. Patient evaluated with labs, chest x-ray and CT of the neck with contrast. Broad-spectrum antibiotics covering MRSA initiated. Blood cultures were obtained. Patient treated with analgesia. Incision and drainage planned. EKG - NSR LVH. White count normal. Chest x-ray normal. CT of the neck as below. Repeat dose of morphine administered prior to incision and drainage. See procedure note. Improved after I and D. Due to the extensive nature of this abscess the patient needs admission for IV antibiotics and repeat surgical evaluation. The fact she is not eating is significant also. She believes that the tooth might need to be pulled. However stabilization with IV antibiotics and IV hydration is imperative at the moment. Laboratory Tests Test 01/07/21 11:30 01/07/21 12:00 White Blood Count 7.8 K/UL (4.8-10.8) Red Blood Count 4.34 M/UL (4.20-5.40) Hemoglobin 11.9 G/DL (12.0-16.0) L Hematocrit 38.9 % (37.0-47.0) Mean Corpuscular Volume 90 FL (80-99) Mean Corpuscular Hemoglobin 27.4 PG (27.0-31.0) Mean Corpuscular Hemoglobin Concent 30.5 G/DL (32.0-36.0) L Red Cell Distribution Width 13.0 % (11.6-14.8) Platelet Count 363 K/UL (150-450) Mean Platelet Volume 7.0 FL (6.5-10.1) Neutrophils (%) (Auto) 62.7 % (45.0-75.0) Lymphocytes (%) (Auto) 26.7 % (20.0-45.0) Monocytes (%) (Auto) 8.0 % (1.0-10.0) Eosinophils (%) (Auto) 1.9 % (0.0-3.0) Basophils (%) (Auto) 0.8 % (0.0-2.0) Prothrombin Time 11.2 SEC (9.30-11.50) Prothrombin Time INR 1.0 (0.9-1.1) Activated Partial Thromboplast Time 27 SEC (23-33) Sodium Level 141 MMOL/L (136-145) Potassium Level 3.7 MMOL/L (3.5-5.1) Chloride Level 101 MMOL/L (98-107) Carbon Dioxide Level 35 MMOL/L (21-32) H Anion Gap 5 mmol/L (5-15) Blood Urea Nitrogen 10 mg/dL (7-18) Creatinine 0.9 MG/DL (0.55-1.30) Estimated Glomerular Filtration Rate > 60 mL/min (>60) Glucose Level 83 MG/DL (74-106) Lactic Acid Level 1.10 mmol/L (0.4-2.0) Calcium Level 9.4 MG/DL (8.5-10.1) Magnesium Level 1.9 MG/DL (1.8-2.4) Total Bilirubin 0.3 MG/DL (0.2-1.0) Aspartate Amino Transferase (AST) 26 U/L (15-37) Alanine Aminotransferase (ALT) 35 U/L (12-78) Alkaline Phosphatase 92 U/L (46-116) Total Creatine Kinase 589 U/L (26-308) H Troponin I 0.006 ng/mL (0.000-0.056) Pro-B-Type Natriuretic Peptide 222 pg/mL (0-125) H Total Protein 7.8 G/DL (6.4-8.2) Albumin 3.5 G/DL (3.4-5.0) Globulin 4.3 g/dL Albumin/Globulin Ratio 0.8 (1.0-2.7) L Urine Color Pale yellow Urine Appearance Clear Urine pH 7 (4.5-8.0) Urine Specific [place] 1.010 (1.005-1.035) Urine Protein Negative (NEGATIVE) Urine Glucose (UA) Negative (NEGATIVE) Urine Ketones Negative (NEGATIVE) Urine Blood Negative (NEGATIVE) Urine Nitrite Negative (NEGATIVE) Urine Bilirubin Negative (NEGATIVE) Urine Urobilinogen Normal MG/DL (0.0-1.0) Urine Leukocyte Esterase Negative (NEGATIVE) EKG Diagnostic Results Rate: normal Rhythm: NSR ST Segments: no acute changes - LVH Rhythm Strip Diag. Results EP Interpretation: yes Rhythm: NSR, no PVC's, no ectopy Chest X-Ray Diagnostic Results Chest X-Ray Diagnostic Results : Chest X-Ray Ordered: Yes # of Views/Limited/Complete: 1 View Indication: Other EP Interpretation: Yes Interpretation: no consolidation, no effusion, no pneumothorax Impression: No acute disease Electronically Signed by: Electronically signed by Pb Hare MD CT/MRI/US Diagnostic Results CT/MRI/US Diagnostic Results : Imaging Test Ordered: Neck with contrast Impression 1. 2.2 x 2.1 x 1.2 cm subcutaneous abscess overlying the left mandibular ramus, with small tract extending to the overlying skin. Adjacent subcutaneous stranding and skin thickening. 2. Dental caries and periapical lucencies in the left mandibular molars, concerning for periodontal disease. No mandibular erosion or evidence of osteomyelitis. Of note the CT was performed after incision and drainage of the abscess Last Vital Signs Date Time Temp Pulse Resp B/P (MAP) Pulse Ox O2 Delivery O2 Flow Rate FiO2 01/07/21 16:58 98.0 01/07/21 16:00 65 18 121/63 (82) 95 01/07/21 14:07 Room Air Status: improved Disposition: ADMITTED INPATIENT Condition: Serious Referrals: NON PHYSICIAN (PCP) Pb Hare MD Jan 07, 2021 11:46
--- NOTE | 2021-01-07 12:10 | Diagnostic Imaging Report ---
EXAM: XR Chest, 1 View CLINICAL HISTORY: ABSCESS TECHNIQUE: Frontal view of the chest. COMPARISON: Chest x-rays dated 01/17/17. FINDINGS: Lungs: Unremarkable. The lungs appear clear. No focal consolidation. Pleural space: Unremarkable. The costophrenic angles are sharp. No visible pneumothorax. Heart: Heart appears borderline enlarged, however size is exaggerated by portable AP exam technique. Mediastinum: Unremarkable. Bones/joints: Mild degenerative ossified throughout the visualized spine. IMPRESSION: 1. No acute radiographic findings. 2. Heart appears borderline enlarged, however size is exaggerated by portable AP exam technique.
[2021-01-07 12:11] VITALS: BP 140/93
[2021-01-07 12:14] LABS: ANION GAP 5 mmol/L (5-15); BLOOD UREA NITROGEN 10 mg/dL (7-18); CALCIUM 9.4 MG/DL (8.5-10.1); CARBON DIOXIDE 35 MMOL/L (21-32); CHLORIDE 101 MMOL/L (98-107); CREATININE 0.9 MG/DL (0.55-1.30); POTASSIUM 3.7 MMOL/L (3.5-5.1); SODIUM 141 MMOL/L (136-145)
[2021-01-07 12:15] LABS: BASOPHILS % (AUTO) 0.8 % (0.0-2.0); EOSINOPHILS % (AUTO) 1.9 % (0.0-3.0); HEMATOCRIT 38.9 % (37.0-47.0); HEMOGLOBIN 11.9 G/DL (12.0-16.0); LYMPHOCYTES % (AUTO) 26.7 % (20.0-45.0); MEAN CORPUSCULAR VOLUME 90 FL (80-99); NEUTROPHILS % (AUTO) 62.7 % (45.0-75.0); PLATELET COUNT 363 K/UL (150-450); RED BLOOD COUNT 4.34 M/UL (4.20-5.40); WHITE BLOOD COUNT 7.8 K/UL (4.8-10.8)
[2021-01-07 12:24] LABS: ALANINE AMINOTRANSFERASE 35 U/L (12-78); ALBUMIN 3.5 G/DL (3.4-5.0); ALBUMIN/GLOBULIN RATIO 0.8 (1.0-2.7); ALKALINE PHOSPHATASE 92 U/L (46-116); ASPARTATE AMINO TRANSFERASE 26 U/L (15-37); BILIRUBIN,TOTAL 0.3 MG/DL (0.2-1.0); CREATINE KINASE 589 U/L (26-308)
--- NOTE | 2021-01-07 12:30 | NUR ---
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
[2021-01-07] MEDS ORDERED: HYDROCHLOROTH12.5 MG ORAL (12:59)
[2021-01-07] MEDS ORDERED: LANSOPRAZOLE30 MG ORAL (12:59)
[2021-01-07] MEDS ORDERED: DIOVAN80 MG ORAL (12:59)
[2021-01-07] MEDS ORDERED: NORMODYNE200 MG ORAL (12:59)
--- NOTE | 2021-01-07 13:00 | NUR ---
to ct scan via [facility]
[2021-01-07 13:10] LABS: APPEARANCE,URINE CLEAR; BILIRUBIN, URINE NEGATIVE (NEGATIVE); COLOR,URINE PALE YELLOW; GLUCOSE, URINE (UA) NEGATIVE (NEGATIVE); KETONES,URINE NEGATIVE (NEGATIVE); LEUKOCYTE ESTERASE ,URINE NEGATIVE (NEGATIVE); NITRITE,URINE NEGATIVE (NEGATIVE); PH,URINE 7 (4.5-8.0); PROTEIN,URINE NEGATIVE (NEGATIVE); UROBILINOGEN,URINE NORMAL MG/DL (0.0-1.0)
--- NOTE | 2021-01-07 13:46 | Diagnostic Imaging Report ---
EXAM: CT Neck With Intravenous Contrast CLINICAL HISTORY: ABSCESS TECHNIQUE: Axial computed tomography images of the neck with intravenous contrast. Coronal and sagittal images were obtained and reviewed. CTDI is 166.9 mGy and DLP is 522.9 mGy-cm. One or more of the following dose reduction techniques were used: automated exposure control, adjustment of the mA and/or kV according to patient size, use of iterative reconstruction technique. COMPARISON: No relevant prior studies available. FINDINGS: Oropharynx: Unremarkable. No significant tonsillar enlargement. No peritonsillar abscess. Hypopharynx: Unremarkable. Larynx: Unremarkable. Normal epiglottis. Trachea: Unremarkable. Retropharyngeal space: Unremarkable. Submandibular/parotid glands: Unremarkable. Glands are normal in size. Thyroid: Unremarkable. No enlarged or calcified nodules. Bones/joints: No osseous erosions. No evidence of osteomyelitis. No acute fracture. Soft tissues: 2.2 x 2.1 x 1.2 cm fluid collection in the subcutaneous soft tissues overlying the left mandibular ramus, concerning for abscess. Adjacent subcutaneous stranding and skin thickening and a small soft tissue tract with foci of air extending from the abscess to the skin. Vasculature: Unremarkable as visualized. Lymph nodes: Unremarkable. No lymphadenopathy. Dental: Dental caries and periapical lucencies in the left mandibular molars, concerning for periodontal disease. Lung apices: Unremarkable as visualized. IMPRESSION: 1. 2.2 x 2.1 x 1.2 cm subcutaneous abscess overlying the left mandibular ramus, with small tract extending to the overlying skin. Adjacent subcutaneous stranding and skin thickening. 2. Dental caries and periapical lucencies in the left mandibular molars, concerning for periodontal disease. No mandibular erosion or evidence of osteomyelitis.
[2021-01-07 14:07] VITALS: BP 126/66
--- NOTE | 2021-01-07 14:11 | NUR ---
report given to jeannine pearl patient is to be transferd to [facility] via [facility]
--- NOTE | 2021-01-07 15:03 | NUR ---
NURSE NOTES: I received report from Soumya Charge nurse; patient alert x4; on room air, no sign of distress and shortness of breath; no sign of chest pain; IV Left AC flushes well; belongings counted and signed by Charge nurseSoumya; side rails up x2, breaks engaged, bed at lowest position; call light within reach; will keep monitoring.
--- NOTE | 2021-01-07 15:11 | NUR ---
NURSE NOTES: I communicated MD Ortiz to get admission order for DVT, Diet, Code status, medication orders; waiting for order;
--- NOTE | 2021-01-07 15:14 | NUR ---
NURSE NOTES: I receive order from MD Ortiz, carried out as given;
[2021-01-07] MEDS ORDERED: HYDROcodone/Acetamin 5/325 tab ORAL PRN (15:30)
[2021-01-07 16:00] VITALS: BP 121/63
[2021-01-07] MEDS: Tylenol #3 tab (300mg/30mg) ORAL PRN (16:28)
--- NOTE | 2021-01-07 18:21 | Infectious Diseases Prog Note ---
Assessment/Plan Assessment/Plan Full consult dictated: A) 1) left jaw/neck/facial abscess/cellulitis 2) s/p I/D in ER 3) allergies - nkda 4) pmh noted P) 1) vancomycin and zosyn 2) f/u on cultures 3) surgery evaluation 4) will f/u 5) thank you Subjective Allergies: Coded Allergies: NATALIE INHIBITORS (Verified Allergy, Unknown, Anaphylaxis, 09/01/15) Swollen tongue, SOB IBUPROFEN (Verified Allergy, Unknown, ITCHING, 01/17/17) Objective Last 24 Hour Vital Signs Date Time Temp Pulse Resp B/P (MAP) Pulse Ox O2 Delivery O2 Flow Rate FiO2 01/07/21 16:58 98.0 01/07/21 16:00 98.3 65 18 121/63 (82) 95 01/07/21 14:07 78 18 126/66 100 Room Air 01/07/21 14:06 98.0 80 18 140/80 98 Room Air 01/07/21 12:11 63 18 140/93 100 Room Air 01/07/21 11:30 98.4 18 130/70 98 Room Air 01/07/21 11:21 98.4 92 18 130/70 (90) 98 Room Air Height (Feet): 5 Height (Inches): 3.00 Weight (Pounds): 180 Laboratory Tests Test 01/07/21 11:30 01/07/21 12:00 White Blood Count 7.8 K/UL (4.8-10.8) Red Blood Count 4.34 M/UL (4.20-5.40) Hemoglobin 11.9 G/DL (12.0-16.0) L Hematocrit 38.9 % (37.0-47.0) Mean Corpuscular Volume 90 FL (80-99) Mean Corpuscular Hemoglobin 27.4 PG (27.0-31.0) Mean Corpuscular Hemoglobin Concent 30.5 G/DL (32.0-36.0) L Red Cell Distribution Width 13.0 % (11.6-14.8) Platelet Count 363 K/UL (150-450) Mean Platelet Volume 7.0 FL (6.5-10.1) Neutrophils (%) (Auto) 62.7 % (45.0-75.0) Lymphocytes (%) (Auto) 26.7 % (20.0-45.0) Monocytes (%) (Auto) 8.0 % (1.0-10.0) Eosinophils (%) (Auto) 1.9 % (0.0-3.0) Basophils (%) (Auto) 0.8 % (0.0-2.0) Prothrombin Time 11.2 SEC (9.30-11.50) Prothromb Time International Ratio 1.0 (0.9-1.1) Activated Partial Thromboplast Time 27 SEC (23-33) Sodium Level 141 MMOL/L (136-145) Potassium Level 3.7 MMOL/L (3.5-5.1) Chloride Level 101 MMOL/L (98-107) Carbon Dioxide Level 35 MMOL/L (21-32) H Anion Gap 5 mmol/L (5-15) Blood Urea Nitrogen 10 mg/dL (7-18) Creatinine 0.9 MG/DL (0.55-1.30) Estimat Glomerular Filtration Rate > 60 mL/min (>60) Glucose Level 83 MG/DL (74-106) Lactic Acid Level 1.10 mmol/L (0.4-2.0) Calcium Level 9.4 MG/DL (8.5-10.1) Magnesium Level 1.9 MG/DL (1.8-2.4) Total Bilirubin 0.3 MG/DL (0.2-1.0) Aspartate Amino Transf (AST/SGOT) 26 U/L (15-37) Alanine Aminotransferase (ALT/SGPT) 35 U/L (12-78) Alkaline Phosphatase 92 U/L (46-116) Total Creatine Kinase 589 U/L (26-308) H Troponin I 0.006 ng/mL (0.000-0.056) Pro-B-Type Natriuretic Peptide 222 pg/mL (0-125) H Total Protein 7.8 G/DL (6.4-8.2) Albumin 3.5 G/DL (3.4-5.0) Globulin 4.3 g/dL Albumin/Globulin Ratio 0.8 (1.0-2.7) L Urine Color Pale yellow Urine Appearance Clear Urine pH 7 (4.5-8.0) Urine Specific [place] 1.010 (1.005-1.035) Urine Protein Negative (NEGATIVE) Urine Glucose (UA) Negative (NEGATIVE) Urine Ketones Negative (NEGATIVE) Urine Blood Negative (NEGATIVE) Urine Nitrite Negative (NEGATIVE) Urine Bilirubin Negative (NEGATIVE) Urine Urobilinogen Normal MG/DL (0.0-1.0) Urine Leukocyte Esterase Negative (NEGATIVE) Current Medications Medications (Trade) Dose Ordered Sig/Codi Route PRN Reason Start Time Stop Time Status Last Admin Dose Admin Acetaminophen (Tylenol) 650 mg Q6H PRN ORAL For Headache 01/07/21 15:30 02/06/21 15:29 Acetaminophen/ Codeine Phosphate (Tylenol #3) 1 tab Q6H PRN ORAL For Pain 01/07/21 16:15 01/14/21 16:14 01/07/21 16:28 Clotrimazole (Lotrimin) 1 applic TWICE A DAY TOPIC 01/07/21 18:00 04/07/21 17:59 01/07/21 17:44 Furosemide (Lasix) 20 mg DAILY ORAL 01/08/21 09:00 02/07/21 08:59 HCTZ/Losartan Potassium (Hyzaar 50-12.5mg) 1 tab DAILY ORAL 01/08/21 09:00 04/08/21 08:59 Iopamidol (Isovue-300 100ml) 100 ml NOW PRN INJ Radiology Procedure 01/07/21 11:45 01/09/21 11:44 Ondansetron HCl (Zofran) 4 mg Q4H PRN IVP Nausea & Vomiting 01/07/21 15:30 02/06/21 15:29 Piperacillin Sod/ Tazobactam Sod 3.375 gm/Sodium Chloride 110 ml @ 27.5 mls/hr EVERY 8 HOURS IVPB 01/07/21 22:00 01/12/21 21:59 Vancomycin HCl (Vanco pharmacy to dose) 1 ea DAILY PRN MISC Per rx protocol 01/07/21 15:15 02/06/21 15:14 Vancomycin HCl 1 gm/Dextrose 275 ml @ 183.708 mls/hr Q24H IVPB 01/08/21 12:00 01/13/21 11:59 Windy Zhou MD Jan 07, 2021 18:21
--- NOTE | 2021-01-07 19:15 | NUR ---
NURSE HAND-OFF: Important Events on Shift:WNL Patient Status: Diet: Pending Orders: Pending Results/Labs: Pending MD notification: Latest Vital Signs: Temperature 98.0 , Pulse 65 , B/P 121 /63 , Respiratory Rate 18 , O2 SAT 95 , Room Air, O2 Flow Rate . Vital Sign Comment: Latest Montes Fall Score: 60 Fall Risk: High Risk Safety Measures: Call light Within Reach, Bed Alarm , Side Rails Side Rails x2, Bed position . Fall Precautions: Report given to .
--- NOTE | 2021-01-07 19:15 | NUR ---
NURSE NOTES: Received report from WAYNE Wiggins. Pt is in bed A&Ox4, in no distress right now. Call light within reach, side rails up x2, bed locked and in lowest position. Pt is able to ambulate with a walker. Will continue to monitor.
--- NOTE | 2021-01-07 19:57 | History & Physical ---
History of Present Illness General Reason for Hospitalization: Skin Rash/Abscess Present Illness HPI This is a very pleasant 65-year-old female who recently had a left posterior tooth broken that needs to be pulled by her dentist for possible tooth infection and started on oral antibiotics. She has been taking amoxicillin. The left side of her face and jaw have become more swollen and painful and raised with purulent drainage. She complains about 10/10 pain at this time. She denies any fevers or chills. Her dentist told her to come to the hospital as her oral antibiotics are not working and she will likely require IV antibiotics and further evaluation. patient was admitted for the care management surgery was called to evaluate assist with care. her tetanus is up-to-date. She is unable to eat well but is not having difficulty swallowing. It is more a lack of appetite and difficulty chewing. Allergies: Coded Allergies: NATALIE INHIBITORS (Verified Allergy, Unknown, Anaphylaxis, 09/01/15) Swollen tongue, SOB IBUPROFEN (Verified Allergy, Unknown, ITCHING, 01/17/17) COVID-19 Screening Contact w/high risk pt: No Experienced COVID-19 symptoms?: No Medication History Scheduled Atorvastatin Calcium* (Lipitor*), 10 MG ORAL BEDTIME, (Reported) Bysto (Bystolic), 5 MG ORAL DAILY Clotrimazole* (Lotrimin*), 1 APPLIC TOPIC TWICE A DAY, (Reported) Ergocalciferol (Vitamin D2)* (Vitamin D*), 50,000 UNIT ORAL WEEKLY ON MONDAYS, (Reported) Furosemide* (Lasix*), 20 MG ORAL DAILY, (Reported) Hydrochlorothiazide* (Hydrochlorothiazide*), 12.5 MG ORAL DAILY, (Reported) Labetalol HCl (Labetalol HCl), 200 MG ORAL EVERY 12 HOURS, (Reported) Lansoprazole* (Lansoprazole*), 30 MG ORAL DAILY, (Reported) Loratadine (Claritin*), 10 MG PO DAILY, (Reported) Losartan/Hydrochlorothiazide 50-12.5 Tablet* (Hyzaar 50-12.5 Tablet*), 1 TAB ORAL DAILY, (Reported) Omeprazole (Omeprazole), 20 MG PO DAILY, (Reported) Ranitidine Hcl* (Zantac*), 150 MG ORAL TWICE A DAY, (Reported) Silver Sulfadiazine (Silvadene), 20 GM TP TWICE A DAY Valsartan (Diovan), 80 MG ORAL DAILY, (Reported) Scheduled PRN Acetaminophen With Codeine (T#3) (Tylenol #3 Tab*), 1 TAB ORAL Q8H PRN for For Pain Hydrocodone Bit/Acetaminophen 5-325* (Mentcle 5-325*), 1 TAB ORAL Q6H PRN for For Pain Oxycodone/Acetaminophen 5-325* (Percocet 5-325 Mg Tablet*), 1 TAB ORAL Q6H PRN for For Pain Temazepam (Temazepam*), 15 MG ORAL BEDTIME PRN for Insomnia, (Reported) Miscellaneous Medications Ipratropium/Albuterol Sulfate (Combivent Respimat Inhal [place]), 4 GM IH, (Reported) Patient History Healthcare decision maker N Resuscitation status Advanced Directive on File Review of Systems Review of Symptoms General ROS: no weight loss or fever Psychological ROS: no depression or mood changes, no memory loss Ophthalmic ROS: no visual changes or eye irritation ENT ROS: no nasal congestion, hearing loss, dizziness Allergy and Immunology ROS: no allergic symptoms or urticaria Hematological and Lymphatic ROS: no swollen glands, unusual bleeding or bruising Endocrine ROS: no polyuria, polydipsia, weight changes, temperature intolerance Respiratory ROS: no cough, shortness of breath, or wheezing Cardiovascular ROS: no chest pain or dyspnea on exertion Gastrointestinal ROS: denies abdominal pain, bright red blood in stool. Musculoskeletal ROS: no myalgias or arthralgias Neurological ROS: no TIA or stroke symptoms Dermatological ROS: no new or changing skin lesions, rashes or pruritis Physical Exam Physical Exam General appearance: alert, cooperative, no distress, appears stated age Head: Normocephalic, without obvious abnormality, atraumatic Eyes: conjunctivae/corneas clear. PERRL, EOM's intact. Fundi benign Throat: Lips, mucosa, and tongue normal. Teeth and gums normal Neck: supple, symmetrical, trachea midline, no adenopathy, thyroid: not enlarged, symmetric, no tenderness/mass/nodules, no carotid bruit and no JVD Lungs: clear to auscultation bilaterally Heart: regular rate and rhythm, S1, S2 normal, no murmur, click, rub or gallop Abdomen: soft, non-tender. Bowel sounds normal. No masses, no organomegaly Extremities: extremities normal, atraumatic, no cyanosis or edema Pulses: 2+ and symmetric Skin: Skin color, texture, turgor normal. No rashes or lesions Neurologic: Grossly normal Last 24 Hour Vital Signs Date Time Temp Pulse Resp B/P (MAP) Pulse Ox O2 Delivery O2 Flow Rate FiO2 01/07/21 16:58 98.0 01/07/21 16:00 98.3 65 18 121/63 (82) 95 01/07/21 14:07 78 18 126/66 100 Room Air 01/07/21 14:06 98.0 80 18 140/80 98 Room Air 01/07/21 12:11 63 18 140/93 100 Room Air 01/07/21 11:30 98.4 18 130/70 98 Room Air 01/07/21 11:21 98.4 92 18 130/70 (90) 98 Room Air Laboratory Tests Test 01/07/21 11:30 01/07/21 12:00 White Blood Count 7.8 K/UL (4.8-10.8) Red Blood Count 4.34 M/UL (4.20-5.40) Hemoglobin 11.9 G/DL (12.0-16.0) L Hematocrit 38.9 % (37.0-47.0) Mean Corpuscular Volume 90 FL (80-99) Mean Corpuscular Hemoglobin 27.4 PG (27.0-31.0) Mean Corpuscular Hemoglobin Concent 30.5 G/DL (32.0-36.0) L Red Cell Distribution Width 13.0 % (11.6-14.8) Platelet Count 363 K/UL (150-450) Mean Platelet Volume 7.0 FL (6.5-10.1) Neutrophils (%) (Auto) 62.7 % (45.0-75.0) Lymphocytes (%) (Auto) 26.7 % (20.0-45.0) Monocytes (%) (Auto) 8.0 % (1.0-10.0) Eosinophils (%) (Auto) 1.9 % (0.0-3.0) Basophils (%) (Auto) 0.8 % (0.0-2.0) Prothrombin Time 11.2 SEC (9.30-11.50) Prothromb Time International Ratio 1.0 (0.9-1.1) Activated Partial Thromboplast Time 27 SEC (23-33) Sodium Level 141 MMOL/L (136-145) Potassium Level 3.7 MMOL/L (3.5-5.1) Chloride Level 101 MMOL/L (98-107) Carbon Dioxide Level 35 MMOL/L (21-32) H Anion Gap 5 mmol/L (5-15) Blood Urea Nitrogen 10 mg/dL (7-18) Creatinine 0.9 MG/DL (0.55-1.30) Estimat Glomerular Filtration Rate > 60 mL/min (>60) Glucose Level 83 MG/DL (74-106) Lactic Acid Level 1.10 mmol/L (0.4-2.0) Calcium Level 9.4 MG/DL (8.5-10.1) Magnesium Level 1.9 MG/DL (1.8-2.4) Total Bilirubin 0.3 MG/DL (0.2-1.0) Aspartate Amino Transf (AST/SGOT) 26 U/L (15-37) Alanine Aminotransferase (ALT/SGPT) 35 U/L (12-78) Alkaline Phosphatase 92 U/L (46-116) Total Creatine Kinase 589 U/L (26-308) H Troponin I 0.006 ng/mL (0.000-0.056) Pro-B-Type Natriuretic Peptide 222 pg/mL (0-125) H Total Protein 7.8 G/DL (6.4-8.2) Albumin 3.5 G/DL (3.4-5.0) Globulin 4.3 g/dL Albumin/Globulin Ratio 0.8 (1.0-2.7) L Urine Color Pale yellow Urine Appearance Clear Urine pH 7 (4.5-8.0) Urine Specific [place] 1.010 (1.005-1.035) Urine Protein Negative (NEGATIVE) Urine Glucose (UA) Negative (NEGATIVE) Urine Ketones Negative (NEGATIVE) Urine Blood Negative (NEGATIVE) Urine Nitrite Negative (NEGATIVE) Urine Bilirubin Negative (NEGATIVE) Urine Urobilinogen Normal MG/DL (0.0-1.0) Urine Leukocyte Esterase Negative (NEGATIVE) Height (Feet): 5 Height (Inches): 3.00 Weight (Pounds): 180 Medications Current Medications Medications (Trade) Dose Ordered Sig/Codi Route PRN Reason Start Time Stop Time Status Last Admin Dose Admin Acetaminophen (Tylenol) 650 mg Q6H PRN ORAL For Headache 01/07/21 15:30 02/06/21 15:29 Acetaminophen/ Codeine Phosphate (Tylenol #3) 1 tab Q6H PRN ORAL For Pain 01/07/21 16:15 01/14/21 16:14 01/07/21 16:28 Clotrimazole (Lotrimin) 1 applic TWICE A DAY TOPIC 01/07/21 18:00 04/07/21 17:59 01/07/21 17:44 Furosemide (Lasix) 20 mg DAILY ORAL 01/08/21 09:00 02/07/21 08:59 HCTZ/Losartan Potassium (Hyzaar 50-12.5mg) 1 tab DAILY ORAL 01/08/21 09:00 04/08/21 08:59 Iopamidol (Isovue-300 100ml) 100 ml NOW PRN INJ Radiology Procedure 01/07/21 11:45 01/09/21 11:44 Ondansetron HCl (Zofran) 4 mg Q4H PRN IVP Nausea & Vomiting 01/07/21 15:30 02/06/21 15:29 Piperacillin Sod/ Tazobactam Sod 3.375 gm/Sodium Chloride 110 ml @ 27.5 mls/hr EVERY 8 HOURS IVPB 01/07/21 22:00 01/12/21 21:59 Vancomycin HCl (Vanco pharmacy to dose) 1 ea DAILY PRN MISC Per rx protocol 01/07/21 15:15 02/06/21 15:14 Vancomycin HCl 1 gm/Dextrose 275 ml @ 183.708 mls/hr Q24H IVPB 01/08/21 12:00 01/13/21 11:59 Assessment/Plan Diagnosis [facility]: Oropharynx: Unremarkable. No significant tonsillar enlargement. No peritonsillar abscess. Hypopharynx: Unremarkable. Larynx: Unremarkable. Normal epiglottis. Trachea: Unremarkable. Retropharyngeal space: Unremarkable. Submandibular/parotid glands: Unremarkable. Glands are normal in size. Thyroid: Unremarkable. No enlarged or calcified nodules. Bones/joints: No osseous erosions. No evidence of osteomyelitis. No acute fracture. Soft tissues: 2.2 x 2.1 x 1.2 cm fluid collection in the subcutaneous soft tissues overlying the left mandibular ramus, concerning for abscess. Adjacent subcutaneous stranding and skin thickening and a small soft tissue tract with foci of air extending from the abscess to the skin. Vasculature: Unremarkable as visualized. Lymph nodes: Unremarkable. No lymphadenopathy. Dental: Dental caries and periapical lucencies in the left mandibular molars, concerning for periodontal disease. Lung apices: Unremarkable as visualized. IMPRESSION: 1. 2.2 x 2.1 x 1.2 cm subcutaneous abscess overlying the left mandibular ramus, with small tract extending to the overlying skin. Adjacent subcutaneous stranding and skin thickening. 2. Dental caries and periapical lucencies in the left mandibular molars, concerning for periodontal disease. No mandibular erosion or evidence of osteomyelitis. -admit inpatient - IV abx - ID eval - surgery eval - follwo labs - resume home meds - monitor CBC MIPS Hospital declaration I spent 70 minutes on this patient's case, and 35 minutes was dedicated to counseling and/or care coordination. MIPS ([employer]-based Incentive Payment System) Applicable CPT: 44037, 10555 CHECK ALL THAT ARE MET: Measure #5 (CHF): All ages. Prescribe NATALIE/ARB upon discharge for patients with left ventricular systolic dysfunction. If not, the reason is clearly documented in the medical chart. Measure #8 (CHF): All ages. Prescribe a beta joanne upon discharge for patients with left ventricular systolic dysfunction. If not, the reason is clearly documented in the medical chart. Measure #47 Advance care plan or surrogate decision maker documented in the medical record. Measure #130 The provider has documented, updated, or reviewed the patients current medication list and has documented it in the patients note. Measure #374 (All): Send report to referring provider. Measure #407(Sepsis due to MSSA bacteremia): Age 18+ Patient treated with a beta-lactam antibiotic (Nafcillin, Oxacillin or Cefazolin) as definitive therapy. MEDICAL COMPLEXITY High complexity medical decision making (need 2/3 categories) Problem - need 4 points Acute/new problem with new plan for workup (4 points, 1 max) Acute/new problem without additional workup (3 points, 1 max) Unstable chronic problem actively being managed (2 point each, 2 max) Stable chronic problem actively being managed (1 point each, 2 max) Self-limited/transient process (constipation, muscle ache, etc) (1 point each, 2 max) Data - need 4 points Reviewed labs/imaging studies (1 points, 2 max) Independent review of imaging (EKG, xrays, etc) (2 points, 2 max) Discussed case with consult/other MD/RN (2 points, 2 max) High Risk - qualify if have one of the following: Severe exacerbation of acute problem, acute mental status change, IV narcotics, monitoring drug levels (vancomycin, INR, tacrolimus etc) Betr Ortiz M.D. Jan 07, 2021 19:57
[2021-01-07 20:00] VITALS: BP 120/50
--- NOTE | 2021-01-07 20:59 | Consultation ---
DATE OF CONSULTATION: 01/07/2021 INFECTIOUS DISEASE CONSULTATION CONSULTING PHYSICIAN: Windy Zhou MD. ATTENDING PHYSICIAN: Bert Ortiz MD. REFERRING PHYSICIAN: Bert Ortiz MD. REASON FOR CONSULTATION: Abscess of the left neck underlying the jaw, possible facial, and cellulitis. CHIEF COMPLAINT: The patient's chief complaint coming into the hospital is neck abscess, possible dental infection. HISTORY OF PRESENT ILLNESS: This is a very pleasant 65-year-old female who comes into [facility] with one week of progression of left neck, jaw, and face swelling. The patient had a possible dental infection, was given amoxicillin in the outpatient setting, and she did not improve. The patient presented to the emergency room at [facility] and had an incision and drainage of the left neck abscess. The abscess is in the top part of the neck on the left side below the jaw. She says she also had facial swelling that has improved. Infectious Disease consultation requested for antibiotic management. The patient is on vancomycin and Zosyn. MAR was noted. Orders were noted. Notes were reviewed. Case discussed with the RN also. REVIEW OF SYSTEMS: CONSTITUTIONAL: The patient has no fever, chills, or night sweats. No weight loss mentioned. HEAD AND NECK: She has left facial, jaw, and neck pain and swelling. No neck stiffness or headache, or thrush or dysphagia. She has had some, maybe, occasional difficulty swallowing, but not currently. CARDIAC: No chest pain or palpitations. PULMONARY: No cough, congestion, shortness of breath, hemoptysis, or secretions. GASTROINTESTINAL: No nausea, vomiting, abdominal pain, or diarrhea. GENITOURINARY: No dysuria or frequency. No CVA tenderness. No Schwartz. SKIN: No rash or itching. EXTREMITIES: No extremity pain. No joint pain. NEUROLOGIC: No seizures. PAST MEDICAL HISTORY: The patient has a past medical history of dental infection. She has a history of hypertension and asthma. No history of diabetes or cancer. It looks like she also could have history of dyslipidemia and GERD. ALLERGIES: She has allergy to NATALIE inhibitors and ibuprofen. No antibiotic allergies. SOCIAL HISTORY: Negative for smoking, alcohol, or drug abuse. FAMILY HISTORY: Noncontributory. Negative for tuberculosis or cancer. MEDICATIONS: Upon reviewing the MAR, she is on the following medications, she is on vancomycin and Zosyn. She is on Hyzaar. She is on furosemide, clotrimazole, acetaminophen, Zofran. Outside medications were noted and reconciliated. She was on, in the outpatient setting, atorvastatin, Bystolic, clotrimazole, acetaminophen, hydrochlorothiazide, furosemide, hydrocodone, labetalol, lisinopril, loratadine, omeprazole, temazepam, valsartan, oxycodone looks like. PHYSICAL EXAMINATION: VITAL SIGNS: Temperature is 98.3, pulse rate 65, respiratory rate 18, blood pressure 121/63. Saturation 95% on room air. GENERAL: Alert, responsive, in no acute distress. HEAD AND NECK: Oral exam, no thrush. Eye exam, no icterus. Normocephalic. Neck is supple. Left facial jaw and neck has swelling. It looks like she had an abscess that was drained at the left upper neck below the jaw. It is unclear if there is facial involvement. She does have what looks like cellulitis of those areas, however. HEART: Regular. No gallop or murmur. No friction rub. ABDOMEN: Soft. Positive bowel sounds. Nontender. LUNGS: Clear bilaterally. No rhonchi or rales. SKIN: No rash or dermatitis. MUSCULOSKELETAL: No effusion. No septic arthritis. Lower extremities are without cellulitis. PERIPHERAL VASCULAR: No cyanosis or gangrene. GENITOURINARY: No Schwartz. LINE SITES: Without phlebitis. NEUROLOGIC: Intact and nonfocal. Alert and oriented x3. LABORATORY DATA: White count is 7.8, hemoglobin 11.9. Creatinine is 0.9. LFTs noted. UA negative. Culture of the abscess drained is pending. IMAGING STUDIES: The patient had a CT scan of the head and neck that has subcutaneous abscess overlying the left mandibular ramus with a small tract extending to the skin and adjacent subcutaneous stranding against the left mandibular ramus. This is consistent with the jaw, and she also had dental caries and periodontal disease on the CT scan of the head and neck. Chest x-ray showed no acute findings. Blood culture is pending. Cultures again from the wound are pending. ASSESSMENT AND PLAN: 1. The patient has what looks like jaw and neck abscess, possible facial involvement. It looks like she had abscess and cellulitis. The patient is status post drainage of the abscess in the ER per the records. I agree at this time with vancomycin and Zosyn for gram-negative anaerobic and gram-positive coverage. Continue vancomycin and Zosyn for left jaw/neck/facial abscess and cellulitis. Check culture of the wound drainage from the abscess. It looks like the cellulitis has improved clinically. Continue vancomycin and Zosyn for now and monitor the abscess and cellulitis. The patient to be seen by Surgery also. 2. Hypertension. 3. Blood pressure treatment per primary care team. 4. Asthma. 5. Dental infection and dental caries. 6. Periodontal disease. 7. Possible dyslipidemia. 8. Possible GERD. 9. Continue treatment per primary consultants. 10. Orders were noted. 11. Allergies to NATALIE inhibitors, ibuprofen. 12. Social history is negative. 13. Family history is noncontributory. 14. MAR is noted. 15. Case was discussed with RN. 16. Case was discussed with the patient. Windy Zhou M.D. DR: FIORELLA JOB#: [id number] CC:
[2021-01-07] MEDS: Piperacillin/Tazobactam 3.375 GM in NS 110 ML IVPB SCH (21:24)
[2021-01-08] VITALS (7 sets, daily range): BP systolic 119–141; BP diastolic 55–71
[2021-01-08] MEDS: Tylenol #3 tab (300mg/30mg) ORAL PRN (03:37)
[2021-01-08] MEDS: Piperacillin/Tazobactam 3.375 GM in NS 110 ML IVPB SCH ×3 (05:25→21:10)
[2021-01-08 06:36] LABS: BASOPHILS % (AUTO) 0.4 % (0.0-2.0); EOSINOPHILS % (AUTO) 2.4 % (0.0-3.0); HEMATOCRIT 34.5 % (37.0-47.0); HEMOGLOBIN 10.7 G/DL (12.0-16.0); LYMPHOCYTES % (AUTO) 37.3 % (20.0-45.0); MEAN CORPUSCULAR VOLUME 91 FL (80-99); MONOCYTES % (AUTO) 9.2 % (1.0-10.0); NEUTROPHILS % (AUTO) 50.8 % (45.0-75.0); PLATELET COUNT 325 K/UL (150-450); RED CELL DISTRIBUTION WIDTH 12.9 % (11.6-14.8); WHITE BLOOD COUNT 7.1 K/UL (4.8-10.8)
[2021-01-08 06:56] LABS: ANION GAP 7 mmol/L (5-15); BLOOD UREA NITROGEN 10 mg/dL (7-18); CALCIUM 9.2 MG/DL (8.5-10.1); CARBON DIOXIDE 31 MMOL/L (21-32); CHLORIDE 104 MMOL/L (98-107); PHOSPHORUS 4.1 MG/DL (2.5-4.9); POTASSIUM 3.7 MMOL/L (3.5-5.1); SODIUM 142 MMOL/L (136-145)
--- NOTE | 2021-01-08 07:30 | NUR ---
NURSE HAND-OFF: Important Events on Shift: wound culture collected, dressing changed x2 Patient Status: calm Diet: regular Pending Orders: Pending Results/Labs: Pending MD notification: Latest Vital Signs: Temperature 98.6 , Pulse 63 , B/P 119 /60 , Respiratory Rate 17 , O2 SAT 98 , Room Air, O2 Flow Rate . Vital Sign Comment: VSS Latest Montes Fall Score: 60 Fall Risk: High Risk Safety Measures: Call light Within Reach, Bed Alarm , Side Rails Side Rails x2, Bed position Low and Locked. Fall Precautions: Yellow Socks Patient Fall Education Report given to WAYNE Wiggins.
--- NOTE | 2021-01-08 07:59 | NUR ---
NURSE NOTES: Patient alert x4; on room air; IV LA Zosyn running; dressing on the Left-side of face dry and intact; patient's own cane within reach; side rails up x2, breaks engaged, bed at lowest position; call light within reach; will keep monitoring.
--- NOTE | 2021-01-08 10:00 | NUR ---
NURSE NOTES: RECEIVED PATIENT A/A/OX4, VERBALIZED UNDERSTANDING. PATIENT WAS FRUSTRATED WITH PREVIOUS NURSE REGARDING HER HOME MEDS RECON. AMBULATE WITH CANE. PIV INTACT AND PATENT. LEFT FACE SWOLLEN AND COVERED WITH DRY DRSG. NO ACUTE CARDIO-RESP DISTRESS NOTED. KEPT BED IN THE LOWEST POSITION. SIDERAILS ARE UPX3. BED ALARM AND BRAKES ACTIVATED. WILL CONT TO MONITOR.
[2021-01-08] MEDS: traMADol 50mg tab ORAL PRN (10:48)
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
[2021-01-08] MEDS: Vancomycin 1gm/D5W 275ml IVPB SCH ×2 (11:58)
[2021-01-08] MEDS ORDERED: Vitamin D 50,000 units cap ORAL SCH (12:00)
[2021-01-08] MEDS: Aspirin Baby 81mg ORAL SCH (12:55)
[2021-01-08] MEDS: Hyzaar 50-12.5mg tab ORAL SCH (12:55)
[2021-01-08] MEDS: Diclofenac 1% Gel 100gm TOPIC SCH ×3 (13:00→21:10)
--- NOTE | 2021-01-08 18:02 | NUR ---
NURSE NOTES: reenforced dry drsg on the left mandibular. no acute distress noted. will cont to monitor.
--- NOTE | 2021-01-08 19:02 | Internal Med Progress Note ---
Subjective Physician Name Bert Ortiz Attending Physician Bert Ortiz M.D. Current Medications Medications (Trade) Dose Ordered Sig/Codi Route PRN Reason Start Time Stop Time Status Last Admin Dose Admin Acetaminophen (Tylenol) 650 mg Q6H PRN ORAL For Headache 01/07/21 15:30 02/06/21 15:29 Acetaminophen/ Codeine Phosphate (Tylenol #3) 1 tab Q6H PRN ORAL For Pain 01/07/21 16:15 01/14/21 16:14 01/08/21 03:37 Albuterol/ Ipratropium (Combivent Respimat) 1 puff Q4H PRN INH Shortness of Breath 01/08/21 09:45 02/07/21 09:44 Aspirin (ASA) 81 mg DAILY ORAL 01/08/21 10:07 02/22/21 10:06 01/08/21 12:55 Clotrimazole (Lotrimin) 1 applic THREE TIMES A DAY TOPIC 01/08/21 13:00 04/08/21 12:59 01/08/21 17:07 Diclofenac Sodium (Voltaren gel) 1 applic QID TOPIC 01/08/21 13:00 04/08/21 12:59 01/08/21 17:07 Ergocalciferol (Drisdol) 50,000 intlu ONCE A WEEK ORAL 01/08/21 12:00 02/07/21 11:59 01/08/21 14:57 Furosemide (Lasix) 20 mg DAILY ORAL 01/08/21 09:00 02/07/21 08:59 01/08/21 14:57 HCTZ/Losartan Potassium (Hyzaar 50-12.5mg) 1 tab DAILY ORAL 01/08/21 09:00 04/08/21 08:59 01/08/21 12:55 Iopamidol (Isovue-300 100ml) 100 ml NOW PRN INJ Radiology Procedure 01/07/21 11:45 01/09/21 11:44 Labetalol HCl (Normodyne) 200 mg Q12HR ORAL 01/07/21 21:00 02/06/21 20:59 01/08/21 10:14 Lansoprazole (Prevacid) 30 mg DAILY ORAL 01/08/21 11:00 02/07/21 10:59 01/08/21 10:14 Ondansetron HCl (Zofran) 4 mg Q4H PRN IVP Nausea & Vomiting 01/07/21 15:30 02/06/21 15:29 Piperacillin Sod/ Tazobactam Sod 3.375 gm/Sodium Chloride 110 ml @ 27.5 mls/hr EVERY 8 HOURS IVPB 01/07/21 22:00 01/12/21 21:59 01/08/21 14:24 Tramadol HCl (Ultram) 50 mg Q6H PRN ORAL Severe Pain (Pain Scale 7-10) 01/07/21 20:00 01/14/21 19:59 01/08/21 10:48 Vancomycin HCl (Vanco pharmacy to dose) 1 ea DAILY PRN MISC Per rx protocol 01/07/21 15:15 02/06/21 15:14 Vancomycin HCl 1 gm/Dextrose 275 ml @ 183.708 mls/hr Q24H IVPB 01/08/21 12:00 01/13/21 11:59 01/08/21 11:58 Allergies: Coded Allergies: NATALIE INHIBITORS (Verified Allergy, Unknown, Anaphylaxis, 09/01/15) Swollen tongue, SOB IBUPROFEN (Verified Allergy, Unknown, ITCHING, 01/17/17) All Systems: reviewed and negative except above Subjective left jaw pain better tolerating IV abx Objective Last Vital Signs Date Time Temp Pulse Resp B/P (MAP) Pulse Ox O2 Delivery O2 Flow Rate FiO2 01/08/21 16:06 98.2 66 18 130/71 (90) 98 01/08/21 10:00 Room Air Laboratory Tests Test 01/08/21 05:50 White Blood Count 7.1 K/UL (4.8-10.8) Red Blood Count 3.80 M/UL (4.20-5.40) L Hemoglobin 10.7 G/DL (12.0-16.0) L Hematocrit 34.5 % (37.0-47.0) L Mean Corpuscular Volume 91 FL (80-99) Mean Corpuscular Hemoglobin 28.2 PG (27.0-31.0) Mean Corpuscular Hemoglobin Concent 31.1 G/DL (32.0-36.0) L Red Cell Distribution Width 12.9 % (11.6-14.8) Platelet Count 325 K/UL (150-450) Mean Platelet Volume 6.7 FL (6.5-10.1) Neutrophils (%) (Auto) 50.8 % (45.0-75.0) Lymphocytes (%) (Auto) 37.3 % (20.0-45.0) Monocytes (%) (Auto) 9.2 % (1.0-10.0) Eosinophils (%) (Auto) 2.4 % (0.0-3.0) Basophils (%) (Auto) 0.4 % (0.0-2.0) Sodium Level 142 MMOL/L (136-145) Potassium Level 3.7 MMOL/L (3.5-5.1) Chloride Level 104 MMOL/L (98-107) Carbon Dioxide Level 31 MMOL/L (21-32) Anion Gap 7 mmol/L (5-15) Blood Urea Nitrogen 10 mg/dL (7-18) Creatinine 1.0 MG/DL (0.55-1.30) Estimat Glomerular Filtration Rate > 60 mL/min (>60) Glucose Level 96 MG/DL (74-106) Calcium Level 9.2 MG/DL (8.5-10.1) Phosphorus Level 4.1 MG/DL (2.5-4.9) Magnesium Level 2.0 MG/DL (1.8-2.4) Microbiology Date/Time Source Procedure Growth Status 01/07/21 22:00 Neck Gram Stain - Final Resulted 01/07/21 22:00 Neck Wound Culture Pending Resulted Intake and Output 01/07/21 01/08/21 19:00 07:00 Intake Total 1000 ml 507.5 ml Balance 1000 ml 507.5 ml Intake Oral 480 ml IV Total 1000 ml 27.5 ml # Voids 2 Objective General appearance: alert, cooperative, no distress, appears stated age Head: Normocephalic, without obvious abnormality, atraumatic Eyes: conjunctivae/corneas clear. PERRL, EOM's int Throat: Lips, mucosa, and tongue normal. Teeth and gums normal Neck: supple, symmetrical, trachea midline, no adenopathy, thyroid: not en larged, symmetric, no tenderness/mass/nodules, no carotid bruit and no JVD Lungs: clear to auscultation bilaterally Heart: regular rate and rhythm, S1, S2 normal, no murmur, click, rub or gallop Abdomen: soft, non-tender. Bowel sounds normal. No masses, no organomegaly Extremities: extremities normal, atraumatic, no cyanosis or edema Pulses: 2+ and symmetric Skin: Skin color, texture, turgor normal. No rashes or lesions Neurologic: Grossly normal Assessment/Plan Assessment/Plan Oropharynx: Unremarkable. No significant tonsillar enlargement. No peritonsillar abscess. Hypopharynx: Unremarkable. Larynx: Unremarkable. Normal epiglottis. Trachea: Unremarkable. Retropharyngeal space: Unremarkable. Submandibular/parotid glands: Unremarkable. Glands are normal in size. Thyroid: Unremarkable. No enlarged or calcified nodules. Bones/joints: No osseous erosions. No evidence of osteomyelitis. No acute fracture. Soft tissues: 2.2 x 2.1 x 1.2 cm fluid collection in the subcutaneous soft tissues overlying the left mandibular ramus, concerning for abscess. Adjacent subcutaneous stranding and skin thickening and a small soft tissue tract with foci of air extending from the abscess to the skin. Vasculature: Unremarkable as visualized. Lymph nodes: Unremarkable. No lymphadenopathy. Dental: Dental caries and periapical lucencies in the left mandibular molars, concerning for periodontal disease. Lung apices: Unremarkable as visualized. IMPRESSION: 1. 2.2 x 2.1 x 1.2 cm subcutaneous abscess overlying the left mandibular ramus, with small tract extending to the overlying skin. Adjacent subcutaneous stranding and skin thickening. 2. Dental caries and periapical lucencies in the left mandibular molars, concerning for periodontal disease. No mandibular erosion or evidence of osteomyelitis. -admit inpatient - IV abx - ID eval - surgery eval - follwo labs - resume home Bert Weinstein M.D. Jan 08, 2021 19:02
--- NOTE | 2021-01-08 19:05 | NUR ---
NURSE HAND-OFF: Important Events on Shift:[PAIN MANAGEMENT; CALM AND COMFORTABLE] Patient Status: [FULLCODE] Diet: [] Pending Orders: [LABS; VT @11] Pending Results/Labs:[IN AM] Pending MD notification:[] Latest Vital Signs: Temperature 98.2 , Pulse 66 , B/P 130 /71 , Respiratory Rate 18 , O2 SAT 98 , Room Air, O2 Flow Rate . Vital Sign Comment: [] Latest Montes Fall Score: 60 Fall Risk: High Risk Safety Measures: Call light Within Reach, Bed Alarm , Side Rails Side Rails x2, Bed position Low and Locked. Fall Precautions: Yellow Socks Patient Fall Education Report given to [ABDIFATAH].
--- NOTE | 2021-01-08 19:10 | NUR ---
NURSE NOTES: Received report from WAYNE Payne. Pt is in bed, A&Ox4, call light within reach, side rails up x2, bed locked and in lowest position. Pt is able to ambulate with her cane. IVF infusing well. No distress at this time, will continue to monitor.
[2021-01-09] VITALS: BP 113/48
[2021-01-09 04:00] VITALS: BP 134/69
[2021-01-09] MEDS: Piperacillin/Tazobactam 3.375 GM in NS 110 ML IVPB SCH ×3 (05:12→21:05)
[2021-01-09 06:31] LABS: BASOPHILS % (AUTO) 0.6 % (0.0-2.0); HEMATOCRIT 36.2 % (37.0-47.0); HEMOGLOBIN 11.3 G/DL (12.0-16.0); LYMPHOCYTES % (AUTO) 35.1 % (20.0-45.0); MEAN CORPUSCULAR VOLUME 90 FL (80-99); MONOCYTES % (AUTO) 7.7 % (1.0-10.0); NEUTROPHILS % (AUTO) 54.7 % (45.0-75.0); PLATELET COUNT 369 K/UL (150-450); RED BLOOD COUNT 4.02 M/UL (4.20-5.40); RED CELL DISTRIBUTION WIDTH 12.7 % (11.6-14.8); WHITE BLOOD COUNT 7.1 K/UL (4.8-10.8)
[2021-01-09 06:52] LABS: ALANINE AMINOTRANSFERASE 28 U/L (12-78); ALBUMIN 3.1 G/DL (3.4-5.0); ALBUMIN/GLOBULIN RATIO 0.8 (1.0-2.7); ALKALINE PHOSPHATASE 74 U/L (46-116); AMYLASE 58 U/L (25-115); ANION GAP 6 mmol/L (5-15); ASPARTATE AMINO TRANSFERASE 15 U/L (15-37); BILIRUBIN,TOTAL 0.2 MG/DL (0.2-1.0); BLOOD UREA NITROGEN 9 mg/dL (7-18); CALCIUM 9.3 MG/DL (8.5-10.1); CARBON DIOXIDE 32 MMOL/L (21-32); CHLORIDE 105 MMOL/L (98-107); CREATININE 0.9 MG/DL (0.55-1.30); POTASSIUM 3.5 MMOL/L (3.5-5.1); SODIUM 143 MMOL/L (136-145)
--- NOTE | 2021-01-09 07:30 | NUR ---
NURSE HAND-OFF: Important Events on Shift: Void x2, no pain Patient Status: calm Diet: regular Pending Orders: Pending Results/Labs: Pending MD notification: Latest Vital Signs: Temperature 98.2 , Pulse 60 , B/P 134 /69 , Respiratory Rate 20 , O2 SAT 97 , Room Air, O2 Flow Rate . Vital Sign Comment: VSS Latest Montes Fall Score: 60 Fall Risk: High Risk Safety Measures: Call light Within Reach, Bed Alarm , Side Rails Side Rails x2, Bed position Low and Locked. Fall Precautions: Yellow Socks Patient Fall Education Report given to WAYNE Ji.
[2021-01-09 08:00] VITALS: BP 132/68
--- NOTE | 2021-01-09 08:50 | Internal Med Progress Note ---
Subjective Physician Name Bert Ortiz Attending Physician Bert Ortiz M.D. Current Medications Medications (Trade) Dose Ordered Sig/Codi Route PRN Reason Start Time Stop Time Status Last Admin Dose Admin Acetaminophen (Tylenol) 650 mg Q6H PRN ORAL For Headache 01/07/21 15:30 02/06/21 15:29 Acetaminophen/ Codeine Phosphate (Tylenol #3) 1 tab Q6H PRN ORAL For Pain 01/07/21 16:15 01/14/21 16:14 01/08/21 03:37 Albuterol/ Ipratropium (Combivent Respimat) 1 puff Q4H PRN INH Shortness of Breath 01/08/21 09:45 02/07/21 09:44 Aspirin (ASA) 81 mg DAILY ORAL 01/08/21 10:07 02/22/21 10:06 01/08/21 12:55 Clotrimazole (Lotrimin) 1 applic THREE TIMES A DAY TOPIC 01/08/21 13:00 04/08/21 12:59 01/08/21 17:07 Diclofenac Sodium (Voltaren gel) 1 applic QID TOPIC 01/08/21 13:00 04/08/21 12:59 01/08/21 21:10 Ergocalciferol (Drisdol) 50,000 intlu ONCE A WEEK ORAL 01/08/21 12:00 02/07/21 11:59 01/08/21 14:57 Furosemide (Lasix) 20 mg DAILY ORAL 01/08/21 09:00 02/07/21 08:59 01/08/21 14:57 HCTZ/Losartan Potassium (Hyzaar 50-12.5mg) 1 tab DAILY ORAL 01/08/21 09:00 04/08/21 08:59 01/08/21 12:55 Iopamidol (Isovue-300 100ml) 100 ml NOW PRN INJ Radiology Procedure 01/07/21 11:45 01/09/21 11:44 Labetalol HCl (Normodyne) 200 mg Q12HR ORAL 01/07/21 21:00 02/06/21 20:59 01/08/21 21:10 Lansoprazole (Prevacid) 30 mg DAILY ORAL 01/08/21 11:00 02/07/21 10:59 01/08/21 10:14 Ondansetron HCl (Zofran) 4 mg Q4H PRN IVP Nausea & Vomiting 01/07/21 15:30 02/06/21 15:29 Piperacillin Sod/ Tazobactam Sod 3.375 gm/Sodium Chloride 110 ml @ 27.5 mls/hr EVERY 8 HOURS IVPB 01/07/21 22:00 01/12/21 21:59 01/09/21 05:12 Tramadol HCl (Ultram) 50 mg Q6H PRN ORAL Severe Pain (Pain Scale 7-10) 01/07/21 20:00 01/14/21 19:59 01/08/21 10:48 Vancomycin HCl (Vanco pharmacy to dose) 1 ea DAILY PRN MISC Per rx protocol 01/07/21 15:15 02/06/21 15:14 Vancomycin HCl 1 gm/Dextrose 275 ml @ 183.708 mls/hr Q24H IVPB 01/08/21 12:00 01/13/21 11:59 01/08/21 11:58 Allergies: Coded Allergies: NATALIE INHIBITORS (Verified Allergy, Unknown, Anaphylaxis, 09/01/15) Swollen tongue, SOB IBUPROFEN (Verified Allergy, Unknown, ITCHING, 01/17/17) Subjective left jaw pain better tolerating IV abx Objective Last Vital Signs Date Time Temp Pulse Resp B/P (MAP) Pulse Ox O2 Delivery O2 Flow Rate FiO2 01/09/21 04:00 98.2 60 20 134/69 (90) 97 01/08/21 21:00 Room Air Laboratory Tests Test 01/09/21 05:30 White Blood Count 7.1 K/UL (4.8-10.8) Red Blood Count 4.02 M/UL (4.20-5.40) L Hemoglobin 11.3 G/DL (12.0-16.0) L Hematocrit 36.2 % (37.0-47.0) L Mean Corpuscular Volume 90 FL (80-99) Mean Corpuscular Hemoglobin 28.2 PG (27.0-31.0) Mean Corpuscular Hemoglobin Concent 31.3 G/DL (32.0-36.0) L Red Cell Distribution Width 12.7 % (11.6-14.8) Platelet Count 369 K/UL (150-450) Mean Platelet Volume 6.8 FL (6.5-10.1) Neutrophils (%) (Auto) 54.7 % (45.0-75.0) Lymphocytes (%) (Auto) 35.1 % (20.0-45.0) Monocytes (%) (Auto) 7.7 % (1.0-10.0) Eosinophils (%) (Auto) 2.0 % (0.0-3.0) Basophils (%) (Auto) 0.6 % (0.0-2.0) Erythrocyte Sedimentation Rate 50 MM/HR (0-30) H Prothrombin Time 11.2 SEC (9.30-11.50) Prothromb Time International Ratio 1.0 (0.9-1.1) Activated Partial Thromboplast Time 26 SEC (23-33) Sodium Level 143 MMOL/L (136-145) Potassium Level 3.5 MMOL/L (3.5-5.1) Chloride Level 105 MMOL/L (98-107) Carbon Dioxide Level 32 MMOL/L (21-32) Anion Gap 6 mmol/L (5-15) Blood Urea Nitrogen 9 mg/dL (7-18) Creatinine 0.9 MG/DL (0.55-1.30) Estimat Glomerular Filtration Rate > 60 mL/min (>60) Glucose Level 92 MG/DL (74-106) Calcium Level 9.3 MG/DL (8.5-10.1) Total Bilirubin 0.2 MG/DL (0.2-1.0) Aspartate Amino Transf (AST/SGOT) 15 U/L (15-37) Alanine Aminotransferase (ALT/SGPT) 28 U/L (12-78) Alkaline Phosphatase 74 U/L (46-116) C-Reactive Protein, Quantitative 0.9 mg/dL (0.00-0.90) Total Protein 6.9 G/DL (6.4-8.2) Albumin 3.1 G/DL (3.4-5.0) L Globulin 3.8 g/dL Albumin/Globulin Ratio 0.8 (1.0-2.7) L Amylase Level 58 U/L (25-115) Lipase 110 U/L (73-393) Microbiology Date/Time Source Procedure Growth Status 01/07/21 22:00 Neck Gram Stain - Final Resulted 01/07/21 22:00 Neck Wound Culture - Preliminary NO GROWTH AFTER 24 HOURS Resulted Intake and Output 01/08/21 01/09/21 19:00 07:00 Intake Total 535.0 ml 300 ml Balance 535.0 ml 300 ml Intake Oral 480 ml 300 ml IV Total 55.0 ml # Voids 4 2 Objective General appearance: alert, cooperative, no distress, appears stated age Head: Normocephalic, without obvious abnormality, atraumatic Eyes: conjunctivae/corneas clear. PERRL, EOM's int Throat: Lips, mucosa, and tongue normal. Teeth and gums normal Neck: supple, symmetrical, trachea midline, no adenopathy, thyroid: not enlarged, symmetric, no tenderness/mass/nodules, no carotid bruit and no JVD Lungs: clear to auscultation bilaterally Heart: regular rate and rhythm, S1, S2 normal, no murmur, click, rub or gallop Abdomen: soft, non-tender. Bowel sounds normal. No masses, no organomegaly Extremities: extremities normal, atraumatic, no cyanosis or edema Pulses: 2+ and symmetric Skin: Skin color, texture, turgor normal. No rashes or lesions Neurologic: Grossly normal Assessment/Plan Assessment/Plan Oropharynx: Unremarkable. No significant tonsillar enlargement. No peritonsillar abscess. Hypopharynx: Unremarkable. Larynx: Unremarkable. Normal epiglottis. Trachea: Unremarkable. Retropharyngeal space: Unremarkable. Submandibular/parotid glands: Unremarkable. Glands are normal in size. Thyroid: Unremarkable. No enlarged or calcified nodules. Bones/joints: No osseous erosions. No evidence of osteomyelitis. No acute fracture. Soft tissues: 2.2 x 2.1 x 1.2 cm fluid collection in the subcutaneous soft tissues overlying the left mandibular ramus, concerning for abscess. Adjacent subcutaneous stranding and skin thickening and a small soft tissue tract with foci of air extending from the abscess to the skin. Vasculature: Unremarkable as visualized. Lymph nodes: Unremarkable. No lymphadenopathy. Dental: Dental caries and periapical lucencies in the left mandibular molars, concerning for periodontal disease. Lung apices: Unremarkable as visualized. IMPRESSION: 1. 2.2 x 2.1 x 1.2 cm subcutaneous abscess overlying the left mandibular ramus, with small tract extending to the overlying skin. Adjacent subcutaneous stranding and skin thickening. 2. Dental caries and periapical lucencies in the left mandibular molars, concerning for periodontal disease. No mandibular erosion or evidence of osteomyelitis. -admit inpatient - IV abx - ID eval - surgery eval - follwo labs - resume home Bert Weinstein M.D. Jan 09, 2021 08:50
[2021-01-09] MEDS: Aspirin Baby 81mg ORAL SCH (08:58)
[2021-01-09] MEDS: Diclofenac 1% Gel 100gm TOPIC SCH ×4 (08:59→21:07)
[2021-01-09] MEDS ORDERED: hydroCHLOROthiazide 25mg cap ORAL SCH (09:00)
[2021-01-09] MEDS: traMADol 50mg tab ORAL PRN ×2 (09:32→23:19)
[2021-01-09] MEDS: Hyzaar 50-12.5mg tab ORAL SCH (09:33)
[2021-01-09 12:00] VITALS: BP 119/65
[2021-01-09] MEDS: Vancomycin 1gm/D5W 275ml IVPB SCH ×2 (12:21)
--- NOTE | 2021-01-09 14:49 | Surgery Progress Note ---
Surgery Progress Note Subjective Additional Comments improved cellulitis improved packing removed no pus today improving Objective Last 24 Hour Vital Signs Date Time Temp Pulse Resp B/P (MAP) Pulse Ox O2 Delivery O2 Flow Rate FiO2 01/09/21 12:00 98.1 60 18 119/65 (83) 96 01/09/21 09:33 132/68 01/09/21 09:00 Room Air 01/09/21 08:58 79 132/68 01/09/21 08:00 98.1 79 17 132/68 (89) 01/09/21 04:00 98.2 60 20 134/69 (90) 97 01/09/21 00:00 98.1 69 20 113/48 (69) 98 01/08/21 21:10 69 122/55 01/08/21 21:00 Room Air 01/08/21 20:00 97.9 69 20 122/55 (77) 99 01/08/21 16:06 98.2 66 18 130/71 (90) 98 I&O Intake and Output 01/08/21 01/09/21 19:00 07:00 Intake Total 535.0 ml 300 ml Balance 535.0 ml 300 ml Intake Oral 480 ml 300 ml IV Total 55.0 ml # Voids 4 2 Dressing: saturated Cardiovascular: RSR Respiratory: clear Abdomen: soft, flat, non-tender, present bowel sounds, non-distended Extremities: no edema, no tenderness, no cyanosis Laboratory Tests Test 01/09/21 05:30 White Blood Count 7.1 K/UL (4.8-10.8) Red Blood Count 4.02 M/UL (4.20-5.40) L Hemoglobin 11.3 G/DL (12.0-16.0) L Hematocrit 36.2 % (37.0-47.0) L Mean Corpuscular Volume 90 FL (80-99) Mean Corpuscular Hemoglobin 28.2 PG (27.0-31.0) Mean Corpuscular Hemoglobin Concent 31.3 G/DL (32.0-36.0) L Red Cell Distribution Width 12.7 % (11.6-14.8) Platelet Count 369 K/UL (150-450) Mean Platelet Volume 6.8 FL (6.5-10.1) Neutrophils (%) (Auto) 54.7 % (45.0-75.0) Lymphocytes (%) (Auto) 35.1 % (20.0-45.0) Monocytes (%) (Auto) 7.7 % (1.0-10.0) Eosinophils (%) (Auto) 2.0 % (0.0-3.0) Basophils (%) (Auto) 0.6 % (0.0-2.0) Erythrocyte Sedimentation Rate 50 MM/HR (0-30) H Prothrombin Time 11.2 SEC (9.30-11.50) Prothromb Time International Ratio 1.0 (0.9-1.1) Activated Partial Thromboplast Time 26 SEC (23-33) Sodium Level 143 MMOL/L (136-145) Potassium Level 3.5 MMOL/L (3.5-5.1) Chloride Level 105 MMOL/L (98-107) Carbon Dioxide Level 32 MMOL/L (21-32) Anion Gap 6 mmol/L (5-15) Blood Urea Nitrogen 9 mg/dL (7-18) Creatinine 0.9 MG/DL (0.55-1.30) Estimat Glomerular Filtration Rate > 60 mL/min (>60) Glucose Level 92 MG/DL (74-106) Calcium Level 9.3 MG/DL (8.5-10.1) Total Bilirubin 0.2 MG/DL (0.2-1.0) Aspartate Amino Transf (AST/SGOT) 15 U/L (15-37) Alanine Aminotransferase (ALT/SGPT) 28 U/L (12-78) Alkaline Phosphatase 74 U/L (46-116) C-Reactive Protein, Quantitative 0.9 mg/dL (0.00-0.90) Total Protein 6.9 G/DL (6.4-8.2) Albumin 3.1 G/DL (3.4-5.0) L Globulin 3.8 g/dL Albumin/Globulin Ratio 0.8 (1.0-2.7) L Amylase Level 58 U/L (25-115) Lipase 110 U/L (73-393) Plan Problems: (1) Submandibular abscess Assessment & Plan: Oropharynx: Unremarkable. No significant tonsillar enl argement. No peritonsillar abscess. Hypopharynx: Unremarkable. Larynx: Unremarkable. Normal epiglottis. Trachea: Unremarkable. Retropharyngeal space: Unremarkable. Submandibular/parotid glands: Unremarkable. Glands are normal in size. Thyroid: Unremarkable. No enlarged or calcified nodules. Bones/joints: No osseous erosions. No evidence of osteomyelitis. No acute fracture. Soft tissues: 2.2 x 2.1 x 1.2 cm fluid collection in the subcutaneous soft tissues overlying the left mandibular ramus, concerning for abscess. Adjacent subcutaneous stranding and skin thickening and a small soft tissue tract with foci of air extending from the abscess to the skin. Vasculature: Unremarkable as visualized. Lymph nodes: Unremarkable. No lymphadenopathy. Dental: Dental caries and periapical lucencies in the left mandibular molars, concerning for periodontal disease. Lung apices: Unremarkable as visualized. IMPRESSION: 1. 2.2 x 2.1 x 1.2 cm subcutaneous abscess overlying the left mandibular ramus, with small tract extending to the overlying skin. Adjacent subcutaneous stranding and skin thickening. 2. Dental caries and periapical lucencies in the left mandibular molars, concerning for periodontal disease. No mandibular erosion or evidence of osteomyelitis. (2) Abscess of face Assessment & Plan: 65-year-old female with infected tooth after broken now left submandibular maneuver abscess. Spontaneous drainage 3 mm opening drained at bedside. Packing and dressing initiated. Large amount of phlegmon and edema identified. No further purulent drainage. Cultures taken. On IV antibiotics. CT reviewed. Will monitor with local care dressings packing. If improved continue antibiotics and transition to oral for discharge. If worsening may need further incision potentially debridement and consideration of maxillofacial surgeon for tooth removal and washout. okay for diet. will need liquid likely with straw for a few days. abx as per ID trend labs will follow with recs thank you Viraj Meza Jan 09, 2021 14:49
[2021-01-09 16:00] VITALS: BP 153/74
--- NOTE | 2021-01-09 19:20 | NUR ---
NURSE NOTES: Received report from WAYNE Ji. Pt is in bed A&Ox4, call light within reach, side rails up x2, bed locked and in lowest position. Pt has no pain right now. Will continue to monitor.
--- NOTE | 2021-01-09 19:49 | Infectious Diseases Prog Note ---
Assessment/Plan Assessment/Plan ASSESSMENT AND PLAN: 1. left jaw/facial/neck abscess/cellulitis, CT with left mandibular/submandibular abscess dental infection noted on CT - zosyn and vancomycin - day # 3 - continue management per surgery - s/p I/D abscess - clinically improved - monitor labs, wound culture negative so far - if continues to improve then consider oral augmentin plus doxycycline for one week 2. Hypertension. 3. Blood pressure treatment per primary care team. 4. Asthma. 5. Dental infection and dental caries. 6. Periodontal disease. 7. Possible dyslipidemia. 8. Possible GERD. 9. Continue treatment per primary consultants. 10. Orders were noted. 11. Allergies to NATALIE inhibitors, ibuprofen. 12. Social history is negative. 13. Family history is noncontributory. 14. MAR is noted. 15. Case was discussed with RN. 16. Case was discussed with the patient. Subjective Constitutional: Denies: fever HEENT: Reports: other - less facial and jaw pain ; Denies: congestion Respiratory: Denies: shortness of breath Cardiovascular: Denies: chest pain Gastrointestinal/Abdominal: Denies: nausea, vomiting, diarrhea Genitourinary: Denies: dysuria, hematuria, frequency Neurologic: Denies: headache Psychiatric: Denies: depression Skin: Denies: rash Hematologic: Denies: bleeding Musculoskeletal: Denies: pain Allergies: Coded Allergies: NATALIE INHIBITORS (Verified Allergy, Unknown, Anaphylaxis, 09/01/15) Swollen tongue, SOB IBUPROFEN (Verified Allergy, Unknown, ITCHING, 01/17/17) Objective Last 24 Hour Vital Signs Date Time Temp Pulse Resp B/P (MAP) Pulse Ox O2 Delivery O2 Flow Rate FiO2 01/09/21 16:00 98.2 69 20 153/74 (100) 100 01/09/21 12:00 98.1 60 18 119/65 (83) 96 01/09/21 09:33 132/68 01/09/21 09:00 Room Air 01/09/21 08:58 79 132/68 01/09/21 08:00 98.1 79 17 132/68 (89) 01/09/21 04:00 98.2 60 20 134/69 (90) 97 01/09/21 00:00 98.1 69 20 113/48 (69) 98 01/08/21 21:10 69 122/55 01/08/21 21:00 Room Air 01/08/21 20:00 97.9 69 20 122/55 (77) 99 Height (Feet): 5 Height (Inches): 3.00 Weight (Pounds): 180 General Appearance: no acute distress HEENT: normocephalic, atraumatic, anicteric, mucous membranes moist, other - left facial and jaw swelling less, less pain Respiratory/Chest: lungs clear, normal breath sounds, no respiratory distress, no accessory muscle use Cardiovascular: normal rate, regular rhythm, no gallop/murmur, no JVD Abdomen: normal bowel sounds, soft, non tender, no organomegaly, non distended Genitourinary: other - no espinosa Extremities: no cyanosis Skin: no rash Neurologic/Psychiatric: television agent II-XII grossly normal, alert, responsive Lymphatic: no neck adenopathy Musculoskeletal: no effusion Head/neck CT - IMPRESSION: 1. 2.2 x 2.1 x 1.2 cm subcutaneous abscess overlying the left mandibular ramus, with small tract extending to the overlying skin. Adjacent subcutaneous stranding and skin thickening. 2. Dental caries and periapical lucencies in the left mandibular molars, concerning for periodontal disease. No mandibular erosion or evidence of osteomyelitis. Chest x-ray - IMPRESSION: 1. No acute radiographic findings. 2. Heart appears borderline enlarged, however size is exaggerated by portable AP exam technique. Microbiology Date/Time Source Procedure Growth Status 01/07/21 22:00 Neck Gram Stain - Final Resulted 01/07/21 22:00 Neck Wound Culture - Preliminary NO GROWTH AFTER 24 HOURS Resulted Laboratory Tests Test 01/09/21 05:30 White Blood Count 7.1 K/UL (4.8-10.8) Red Blood Count 4.02 M/UL (4.20-5.40) L Hemoglobin 11.3 G/DL (12.0-16.0) L Hematocrit 36.2 % (37.0-47.0) L Mean Corpuscular Volume 90 FL (80-99) Mean Corpuscular Hemoglobin 28.2 PG (27.0-31.0) Mean Corpuscular Hemoglobin Concent 31.3 G/DL (32.0-36.0) L Red Cell Distribution Width 12.7 % (11.6-14.8) Platelet Count 369 K/UL (150-450) Mean Platelet Volume 6.8 FL (6.5-10.1) Neutrophils (%) (Auto) 54.7 % (45.0-75.0) Lymphocytes (%) (Auto) 35.1 % (20.0-45.0) Monocytes (%) (Auto) 7.7 % (1.0-10.0) Eosinophils (%) (Auto) 2.0 % (0.0-3.0) Basophils (%) (Auto) 0.6 % (0.0-2.0) Erythrocyte Sedimentation Rate 50 MM/HR (0-30) H Prothrombin Time 11.2 SEC (9.30-11.50) Prothromb Time International Ratio 1.0 (0.9-1.1) Activated Partial Thromboplast Time 26 SEC (23-33) Sodium Level 143 MMOL/L (136-145) Potassium Level 3.5 MMOL/L (3.5-5.1) Chloride Level 105 MMOL/L (98-107) Carbon Dioxide Level 32 MMOL/L (21-32) Anion Gap 6 mmol/L (5-15) Blood Urea Nitrogen 9 mg/dL (7-18) Creatinine 0.9 MG/DL (0.55-1.30) Estimat Glomerular Filtration Rate > 60 mL/min (>60) Glucose Level 92 MG/DL (74-106) Calcium Level 9.3 MG/DL (8.5-10.1) Total Bilirubin 0.2 MG/DL (0.2-1.0) Aspartate Amino Transf (AST/SGOT) 15 U/L (15-37) Alanine Aminotransferase (ALT/SGPT) 28 U/L (12-78) Alkaline Phosphatase 74 U/L (46-116) C-Reactive Protein, Quantitative 0.9 mg/dL (0.00-0.90) Total Protein 6.9 G/DL (6.4-8.2) Albumin 3.1 G/DL (3.4-5.0) L Globulin 3.8 g/dL Albumin/Globulin Ratio 0.8 (1.0-2.7) L Amylase Level 58 U/L (25-115) Lipase 110 U/L (73-393) Current Medications Medications (Trade) Dose Ordered Sig/Codi Route PRN Reason Start Time Stop Time Status Last Admin Dose Admin Acetaminophen (Tylenol) 650 mg Q6H PRN ORAL For Headache 01/07/21 15:30 02/06/21 15:29 Acetaminophen/ Codeine Phosphate (Tylenol #3) 1 tab Q6H PRN ORAL For Pain 01/07/21 16:15 01/14/21 16:14 01/08/21 03:37 Albuterol/ Ipratropium (Combivent Respimat) 1 puff Q4H PRN INH Shortness of Breath 01/08/21 09:45 02/07/21 09:44 Aspirin (ASA) 81 mg DAILY ORAL 01/08/21 10:07 02/22/21 10:06 01/09/21 08:58 Diclofenac Sodium (Voltaren gel) 1 applic QID TOPIC 01/08/21 13:00 04/08/21 12:59 01/09/21 17:29 Ergocalciferol (Drisdol) 50,000 intlu ONCE A WEEK ORAL 01/08/21 12:00 02/07/21 11:59 01/08/21 14:57 Furosemide (Lasix) 20 mg DAILY ORAL 01/08/21 09:00 02/07/21 08:59 01/09/21 08:58 HCTZ/Losartan Potassium (Hyzaar 50-12.5mg) 1 tab DAILY ORAL 01/08/21 09:00 04/08/21 08:59 01/09/21 09:33 Labetalol HCl (Normodyne) 200 mg Q12HR ORAL 01/07/21 21:00 02/06/21 20:59 01/09/21 08:58 Lansoprazole (Prevacid) 30 mg DAILY ORAL 01/08/21 11:00 02/07/21 10:59 01/09/21 08:58 Ondansetron HCl (Zofran) 4 mg Q4H PRN IVP Nausea & Vomiting 01/07/21 15:30 02/06/21 15:29 Piperacillin Sod/ Tazobactam Sod 3.375 gm/Sodium Chloride 110 ml @ 27.5 mls/hr EVERY 8 HOURS IVPB 01/07/21 22:00 01/12/21 21:59 01/09/21 14:16 Tramadol HCl (Ultram) 50 mg Q6H PRN ORAL Severe Pain (Pain Scale 7-10) 01/07/21 20:00 01/14/21 19:59 01/09/21 09:32 Vancomycin HCl (Vanco pharmacy to dose) 1 ea DAILY PRN MISC Per rx protocol 01/07/21 15:15 02/06/21 15:14 Vancomycin HCl 1 gm/Dextrose 275 ml @ 183.708 mls/hr Q24H IVPB 01/08/21 12:00 01/13/21 11:59 01/09/21 12:21 Windy Zhou MD Jan 09, 2021 19:49
[2021-01-09 20:00] VITALS: BP 118/52
[2021-01-10] VITALS: BP 135/65
[2021-01-10 04:00] VITALS: BP 129/63
[2021-01-10] MEDS: Piperacillin/Tazobactam 3.375 GM in NS 110 ML IVPB SCH ×3 (05:12→21:39)
--- NOTE | 2021-01-10 07:30 | NUR ---
NURSE HAND-OFF: Important Events on Shift: tramadol x1 Patient Status: calm Diet: regular Pending Orders: Pending Results/Labs: Pending MD notification: Latest Vital Signs: Temperature 98.3 , Pulse 66 , B/P 129 /63 , Respiratory Rate 18 , O2 SAT 98 , Room Air, O2 Flow Rate . Vital Sign Comment: VSS Latest Montes Fall Score: 60 Fall Risk: High Risk Safety Measures: Call light Within Reach, Bed Alarm , Side Rails Side Rails x2, Bed position Low and Locked. Fall Precautions: Yellow Socks Patient Fall Education Report given to WAYNE Albrecht.
[2021-01-10 08:00] VITALS: BP 125/65
--- NOTE | 2021-01-10 08:15 | NUR ---
NURSE NOTES: Received patient report from WAYNE Ambriz. Patient is AO x4 awake and able to make needs known. Patient shows no signs of distress or pain at the time. Patient is on room air and shows no signs of respiratory distress. IV is intact and patent. There are no signs of erythema, infiltration, or bleeding. Bed is in the lowest position, cane at bedside, call light is within reach, side rails up x3. Will continue to monitor.
[2021-01-10] MEDS: Aspirin Baby 81mg ORAL SCH (08:36)
[2021-01-10] MEDS: traMADol 50mg tab ORAL PRN ×2 (08:37→22:31)
[2021-01-10] MEDS: Hyzaar 50-12.5mg tab ORAL SCH (08:37)
[2021-01-10] MEDS: Diclofenac 1% Gel 100gm TOPIC SCH ×4 (08:45→20:16)
--- NOTE | 2021-01-10 09:44 | Internal Med Progress Note ---
Subjective Physician Name Bert Ortiz Attending Physician Bert Ortiz M.D. Current Medications Medications (Trade) Dose Ordered Sig/Codi Route PRN Reason Start Time Stop Time Status Last Admin Dose Admin Acetaminophen (Tylenol) 650 mg Q6H PRN ORAL For Headache 01/07/21 15:30 02/06/21 15:29 Acetaminophen/ Codeine Phosphate (Tylenol #3) 1 tab Q6H PRN ORAL For Pain 01/07/21 16:15 01/14/21 16:14 01/08/21 03:37 Albuterol/ Ipratropium (Combivent Respimat) 1 puff Q4H PRN INH Shortness of Breath 01/08/21 09:45 02/07/21 09:44 Aspirin (ASA) 81 mg DAILY ORAL 01/08/21 10:07 02/22/21 10:06 01/10/21 08:36 Diclofenac Sodium (Voltaren gel) 1 applic QID TOPIC 01/08/21 13:00 04/08/21 12:59 01/10/21 08:45 Ergocalciferol (Drisdol) 50,000 intlu ONCE A WEEK ORAL 01/08/21 12:00 02/07/21 11:59 01/08/21 14:57 Furosemide (Lasix) 20 mg DAILY ORAL 01/08/21 09:00 02/07/21 08:59 01/10/21 08:38 HCTZ/Losartan Potassium (Hyzaar 50-12.5mg) 1 tab DAILY ORAL 01/08/21 09:00 04/08/21 08:59 01/10/21 08:37 Labetalol HCl (Normodyne) 200 mg Q12HR ORAL 01/07/21 21:00 02/06/21 20:59 01/10/21 08:37 Lansoprazole (Prevacid) 30 mg DAILY ORAL 01/08/21 11:00 02/07/21 10:59 01/10/21 08:37 Ondansetron HCl (Zofran) 4 mg Q4H PRN IVP Nausea & Vomiting 01/07/21 15:30 02/06/21 15:29 Piperacillin Sod/ Tazobactam Sod 3.375 gm/Sodium Chloride 110 ml @ 27.5 mls/hr EVERY 8 HOURS IVPB 01/07/21 22:00 01/12/21 21:59 01/10/21 05:12 Tramadol HCl (Ultram) 50 mg Q6H PRN ORAL Severe Pain (Pain Scale 7-10) 01/07/21 20:00 01/14/21 19:59 01/10/21 08:37 Vancomycin HCl (Vanco pharmacy to dose) 1 ea DAILY PRN MISC Per rx protocol 01/07/21 15:15 02/06/21 15:14 Vancomycin HCl 1 gm/Dextrose 275 ml @ 183.708 mls/hr Q24H IVPB 01/08/21 12:00 01/13/21 11:59 01/09/21 12:21 Allergies: Coded Allergies: NATALIE INHIBITORS (Verified Allergy, Unknown, Anaphylaxis, 09/01/15) Swollen tongue, SOB IBUPROFEN (Verified Allergy, Unknown, ITCHING, 01/17/17) Subjective left jaw pain better tolerating IV abx Objective Last Vital Signs Date Time Temp Pulse Resp B/P (MAP) Pulse Ox O2 Delivery O2 Flow Rate FiO2 01/10/21 09:07 97.7 01/10/21 08:37 75 125/65 01/10/21 08:00 20 96 01/09/21 21:00 Room Air Microbiology Date/Time Source Procedure Growth Status 01/07/21 22:00 Neck Gram Stain - Final Resulted 01/07/21 22:00 Neck Wound Culture - Preliminary NO GROWTH AFTER 48 HOURS Resulted Intake and Output 01/09/21 01/10/21 19:00 07:00 Intake Total 400 ml Balance 400 ml Intake Oral 400 ml # Voids 4 3 # Bowel Movements 1 Objective General appearance: alert, cooperative, no distress, appears stated age Head: Normocephalic, without obvious abnormality, atraumatic Eyes: conjunctivae/corneas clear. PERRL, EOM's int Throat: Lips, mucosa, and tongue normal. Teeth and gums normal Neck: supple, symmetrical, trachea midline, no adenopathy, thyroid: not enlarged, symmetric, no tenderness/mass/nodules, no carotid bruit and no JVD Lungs: clear to auscultation bilaterally Heart: regular rate and rhythm, S1, S2 normal, no murmur, click, rub or gallop Abdomen: soft, non-tender. Bowel sounds normal. No masses, no organomegaly Extremities: extremities normal, atraumatic, no cyanosis or edema Pulses: 2+ and symmetric Skin: Skin color, texture, turgor normal. No rashes or lesions Neurologic: Grossly normal Assessment/Plan Assessment/Plan Oropharynx: Unremarkable. No significant tonsillar enlargement. No peritonsillar abscess. Hypopharynx: Unremarkable. Larynx: Unremarkable. Normal epiglottis. Trachea: Unremarkable. Retropharyngeal space: Unremarkable. Submandibular/parotid glands: Unremarkable. Glands are normal in size. Thyroid: Unremarkable. No enlarged or calcified nodules. Bones/joints: No osseous erosions. No evidence of osteomyelitis. No acute fracture. Soft tissues: 2.2 x 2.1 x 1.2 cm fluid collection in the subcutaneous soft tissues overlying the left mandibular ramus, concerning for abscess. Adjacent subcutaneous stranding and skin thickening and a small soft tissue tract with foci of air extending from the abscess to the skin. Vasculature: Unremarkable as visualized. Lymph nodes: Unremarkable. No lymphadenopathy. Dental: Dental caries and periapical lucencies in the left mandibular molars, concerning for periodontal disease. Lung apices: Unremarkable as visualized. IMPRESSION: 1. 2.2 x 2.1 x 1.2 cm subcutaneous abscess overlying the left mandibular ramus, with small tract extending to the overlying skin. Adjacent subcutaneous stranding and skin thickening. 2. Dental caries and periapical lucencies in the left mandibular molars, concerning for periodontal disease. No mandibular erosion or evidence of osteomyelitis. -admit inpatient - IV abx - ID eval - surgery eval - follwo labs - resume home Bert Weinstein M.D. Jan 10, 2021 09:44
[2021-01-10 10:10] LABS: BASOPHILS % (AUTO) 0.9 % (0.0-2.0); EOSINOPHILS % (AUTO) 1.8 % (0.0-3.0); HEMATOCRIT 38.9 % (37.0-47.0); LYMPHOCYTES % (AUTO) 23.2 % (20.0-45.0); MEAN CORPUSCULAR VOLUME 90 FL (80-99); MONOCYTES % (AUTO) 7.3 % (1.0-10.0); NEUTROPHILS % (AUTO) 66.8 % (45.0-75.0); PLATELET COUNT 396 K/UL (150-450); RED BLOOD COUNT 4.33 M/UL (4.20-5.40); WHITE BLOOD COUNT 8.1 K/UL (4.8-10.8)
[2021-01-10 10:43] LABS: ALANINE AMINOTRANSFERASE 35 U/L (12-78); ALBUMIN 3.3 G/DL (3.4-5.0); ALBUMIN/GLOBULIN RATIO 0.8 (1.0-2.7); ALKALINE PHOSPHATASE 80 U/L (46-116); ANION GAP 7 mmol/L (5-15); ASPARTATE AMINO TRANSFERASE 23 U/L (15-37); BILIRUBIN,TOTAL 0.3 MG/DL (0.2-1.0); BLOOD UREA NITROGEN 12 mg/dL (7-18); CALCIUM 9.5 MG/DL (8.5-10.1); CARBON DIOXIDE 32 MMOL/L (21-32); CHLORIDE 103 MMOL/L (98-107); CREATININE 1.1 MG/DL (0.55-1.30); POTASSIUM 4.2 MMOL/L (3.5-5.1); SODIUM 142 MMOL/L (136-145)
--- NOTE | 2021-01-10 10:56 | Surgery Progress Note ---
Surgery Progress Note Subjective Symptoms: improved, tolerating diet, voiding well, passing flatus, BM, pain decreased Additional Comments states jaw feels less swollen and improved pain no n/v/f/c comfortable tolerating diet Objective Last 24 Hour Vital Signs Date Time Temp Pulse Resp B/P (MAP) Pulse Ox O2 Delivery O2 Flow Rate FiO2 01/10/21 09:07 97.7 01/10/21 09:00 Room Air 01/10/21 08:37 75 125/65 01/10/21 08:37 125/65 01/10/21 08:00 97.7 75 20 125/65 (85) 96 01/10/21 04:00 98.3 66 18 129/63 (85) 98 01/10/21 00:00 98.5 67 18 135/65 (88) 97 01/09/21 21:05 69 118/52 01/09/21 21:00 Room Air 01/09/21 20:00 98.4 69 18 118/52 (74) 96 01/09/21 16:00 98.2 69 20 153/74 (100) 100 01/09/21 12:00 98.1 60 18 119/65 (83) 96 I&O Intake and Output 01/09/21 01/10/21 19:00 07:00 Intake Total 400 ml Balance 400 ml Intake Oral 400 ml # Voids 4 3 # Bowel Movements 1 Dressing: saturated Wound: clean Cardiovascular: RSR Respiratory: clear Abdomen: soft, non-tender, present bowel sounds, non-distended Extremities: no edema, no tenderness, no cyanosis Laboratory Tests Test 01/10/21 09:15 White Blood Count 8.1 K/UL (4.8-10.8) Red Blood Count 4.33 M/UL (4.20-5.40) Hemoglobin 12.0 G/DL (12.0-16.0) Hematocrit 38.9 % (37.0-47.0) Mean Corpuscular Volume 90 FL (80-99) Mean Corpuscular Hemoglobin 27.7 PG (27.0-31.0) Mean Corpuscular Hemoglobin Concent 30.9 G/DL (32.0-36.0) L Red Cell Distribution Width 13.0 % (11.6-14.8) Platelet Count 396 K/UL (150-450) Mean Platelet Volume 6.7 FL (6.5-10.1) Neutrophils (%) (Auto) 66.8 % (45.0-75.0) Lymphocytes (%) (Auto) 23.2 % (20.0-45.0) Monocytes (%) (Auto) 7.3 % (1.0-10.0) Eosinophils (%) (Auto) 1.8 % (0.0-3.0) Basophils (%) (Auto) 0.9 % (0.0-2.0) Sodium Level 142 MMOL/L (136-145) Potassium Level 4.2 MMOL/L (3.5-5.1) Chloride Level 103 MMOL/L (98-107) Carbon Dioxide Level 32 MMOL/L (21-32) Anion Gap 7 mmol/L (5-15) Blood Urea Nitrogen 12 mg/dL (7-18) Creatinine 1.1 MG/DL (0.55-1.30) Estimat Glomerular Filtration Rate > 60 mL/min (>60) Glucose Level 90 MG/DL (74-106) Calcium Level 9.5 MG/DL (8.5-10.1) Total Bilirubin 0.3 MG/DL (0.2-1.0) Aspartate Amino Transf (AST/SGOT) 23 U/L (15-37) Alanine Aminotransferase (ALT/SGPT) 35 U/L (12-78) Alkaline Phosphatase 80 U/L (46-116) Total Protein 7.6 G/DL (6.4-8.2) Albumin 3.3 G/DL (3.4-5.0) L Globulin 4.3 g/dL Albumin/Globulin Ratio 0.8 (1.0-2.7) L Plan Problems: (1) Submandibular abscess Assessment & Plan: Oropharynx: Unremarkable. No significant tonsillar enlargement. No peritonsillar abscess. Hypopharynx: Unremarkable. Larynx: Unremarkable. Normal epiglottis. Trachea: Unremarkable. Retropharyngeal space: Unremarkable. Submandibular/parotid glands: Unremarkable. Glands are normal in size. Thyroid: Unremarkable. No enlarged or calcified nodules. Bones/joints: No osseous erosions. No evidence of osteomyelitis. No acute fracture. Soft tissues: 2.2 x 2.1 x 1.2 cm fluid collection in the subcutaneous soft tissues overlying the left mandibular ramus, concerning for abscess. Adjacent subcutaneous stranding and skin thickening and a small soft tissue tract with foci of air extending from the abscess to the skin. Vasculature: Unremarkable as visualized. Lymph nodes: Unremarkable. No lymphadenopathy. Dental: Dental caries and periapical lucencies in the left mandibular molars, concerning for periodontal disease. Lung apices: Unremarkable as visualized. IMPRESSION: 1. 2.2 x 2.1 x 1.2 cm subcutaneous abscess overlying the left mandibular ramus, with small tract extending to the overlying skin. Adjacent subcutaneous stranding and skin thickening. 2. Dental caries and periapical lucencies in the left mandibular molars, concerning for periodontal disease. No mandibular erosion or evidence of osteomyelitis. (2) Abscess of face Assessment & Plan: 65-year-old female with infected tooth after broken now left submandibular maneuver abscess. Spontaneous drainage 3 mm opening drained at bedside. Packing and dressing initiated. Large amount of phlegmon and edema identified. No further purulent drainage. Cultures taken. On IV antibiotics. CT reviewed. Will monitor with local care dressings packing. If improved continue antibiotics and transition to oral for discharge. If worsening may need further incision potentially debridement and consideration of maxillofacial surgeon for tooth removal and washout. okay for diet. will need liquid likely with straw for a few days. abx as per ID trend labs will follow with recs thank you improved cellulitis improving no purulent drainage no fluctuance dressings daily dental f/u for extraction cont abx Viraj Meza Jan 10, 2021 10:56
[2021-01-10 12:00] VITALS: BP 151/73
--- NOTE | 2021-01-10 12:13 | NUR ---
RD ASSESSMENT & RECOMMENDATIONS SEE CARE ACTIVITY FOR COMPLETE ASSESSMENT DAILY ESTIMATED NEEDS: Needs based on Abscess, cardiac 66.9kg abw 25-30 kcals/kg 4228-3103 total kcals 1.25-1.5 g protein/kg 84-100 g total protein Fluid per MD, on diuretics NUTRITION DIAGNOSIS: Chewing difficulty r/t tooth abscess as evidenced by infected tooth after broken now left submandibular maneuver abscess. CURRENT DIET: regular PO DIET RECOMMENDATIONS-->> Low Na/ SOFT easy chew diet ADDITIONAL RECOMMENDATIONS: 1) Monitor lytes on diuretics 2) Add Ensure Enlive 1daily w/ variable po intake Include soft foods-> puddings, yogurt, puree soups 3) Daily calibrated weights on diuretics
[2021-01-10] MEDS: Vancomycin 1gm/D5W 275ml IVPB SCH ×2 (12:21)
[2021-01-10 16:00] VITALS: BP 132/68
--- NOTE | 2021-01-10 19:08 | NUR ---
NURSE HAND-OFF: Important Events on Shift:[None] Patient Status: [full code] Diet: [regular] Pending Orders: [] Pending Results/Labs:[] Pending MD notification:[] Latest Vital Signs: Temperature 97.4 , Pulse 60 , B/P 132 /68 , Respiratory Rate 20 , O2 SAT 95 , Room Air, O2 Flow Rate . Vital Sign Comment: [] Latest Montes Fall Score: 60 Fall Risk: High Risk Safety Measures: Call light Within Reach, Bed Alarm , Side Rails Side Rails x2, Bed position Low and Locked. Fall Precautions: Yellow Socks Patient Fall Education Report given to [WAYNE Guzmán].
--- NOTE | 2021-01-10 19:51 | NUR ---
NURSE NOTES: Received patient in bed, awake, alert, oriented x4, able to make her needs known, ambulates with cane, call light is within reach, bed is lowered, locked, alarm is on, will continue to monitor for comfort and safety.
[2021-01-10 19:54] VITALS: BP 137/87
[2021-01-11 00:02] VITALS: BP 127/74
[2021-01-11] MEDS: Vancomycin 750mg/D5W 275ml IVPB SCH ×4 (00:04→11:15)
[2021-01-11] MEDS: Piperacillin/Tazobactam 3.375 GM in NS 110 ML IVPB SCH ×2 (05:30→14:21)
[2021-01-11] MEDS: traMADol 50mg tab ORAL PRN ×3 (06:51→22:59)
--- NOTE | 2021-01-11 07:14 | NUR ---
NURSE HAND-OFF: Important Events on Shift: uneventful Patient Status: full code Diet:regular Pending Orders: Pending Results/Labs: Pending MD notification: Latest Vital Signs: Temperature 98.7 , Pulse 74 , B/P 127 /74 , Respiratory Rate 18 , O2 SAT 98 , Room Air, O2 Flow Rate . Vital Sign Comment: Latest Montes Fall Score: 60 Fall Risk: High Risk Safety Measures: Call light Within Reach, Bed Alarm , Side Rails Side Rails x2, Bed position Low and Locked. Fall Precautions: Yellow Socks Patient Fall Education Report given to Margy BLACK
[2021-01-11 08:00] VITALS: BP 123/71
--- NOTE | 2021-01-11 09:04 | Internal Med Progress Note ---
Subjective Physician Name Bert Ortiz Attending Physician Bert Ortiz M.D. Current Medications Medications (Trade) Dose Ordered Sig/Codi Route PRN Reason Start Time Stop Time Status Last Admin Dose Admin Acetaminophen (Tylenol) 650 mg Q6H PRN ORAL For Headache 01/07/21 15:30 02/06/21 15:29 Acetaminophen/ Codeine Phosphate (Tylenol #3) 1 tab Q6H PRN ORAL For Pain 01/07/21 16:15 01/14/21 16:14 01/08/21 03:37 Albuterol/ Ipratropium (Combivent Respimat) 1 puff Q4H PRN INH Shortness of Breath 01/08/21 09:45 02/07/21 09:44 Aspirin (ASA) 81 mg DAILY ORAL 01/08/21 10:07 02/22/21 10:06 01/10/21 08:36 Diclofenac Sodium (Voltaren gel) 1 applic QID TOPIC 01/08/21 13:00 04/08/21 12:59 01/10/21 20:16 Ergocalciferol (Drisdol) 50,000 intlu ONCE A WEEK ORAL 01/08/21 12:00 02/07/21 11:59 01/08/21 14:57 Furosemide (Lasix) 20 mg DAILY ORAL 01/08/21 09:00 02/07/21 08:59 01/10/21 08:38 HCTZ/Losartan Potassium (Hyzaar 50-12.5mg) 1 tab DAILY ORAL 01/08/21 09:00 04/08/21 08:59 01/10/21 08:37 Labetalol HCl (Normodyne) 200 mg Q12HR ORAL 01/07/21 21:00 02/06/21 20:59 01/10/21 20:16 Lansoprazole (Prevacid) 30 mg DAILY ORAL 01/08/21 11:00 02/07/21 10:59 01/10/21 08:37 Ondansetron HCl (Zofran) 4 mg Q4H PRN IVP Nausea & Vomiting 01/07/21 15:30 02/06/21 15:29 Piperacillin Sod/ Tazobactam Sod 3.375 gm/Sodium Chloride 110 ml @ 27.5 mls/hr EVERY 8 HOURS IVPB 01/07/21 22:00 01/12/21 21:59 01/11/21 05:30 Tramadol HCl (Ultram) 50 mg Q6H PRN ORAL Severe Pain (Pain Scale 7-10) 01/07/21 20:00 01/14/21 19:59 01/11/21 06:51 Vancomycin HCl (Vanco pharmacy to dose) 1 ea DAILY PRN MISC Per rx protocol 01/07/21 15:15 02/06/21 15:14 Vancomycin HCl 750 mg/Dextrose 275 ml @ 183.333 mls/hr Q12H IVPB 01/11/21 00:00 01/16/21 00:00 01/11/21 00:04 Allergies: Coded Allergies: NATALIE INHIBITORS (Verified Allergy, Unknown, Anaphylaxis, 09/01/15) Swollen tongue, SOB IBUPROFEN (Verified Allergy, Unknown, ITCHING, 01/17/17) Subjective left jaw pain better tolerating IV abx Objective Last Vital Signs Date Time Temp Pulse Resp B/P (MAP) Pulse Ox O2 Delivery O2 Flow Rate FiO2 01/11/21 08:00 98.5 67 18 123/71 (88) 95 01/10/21 21:18 Room Air Laboratory Tests Test 01/10/21 09:15 01/10/21 11:05 White Blood Count 8.1 K/UL (4.8-10.8) Red Blood Count 4.33 M/UL (4.20-5.40) Hemoglobin 12.0 G/DL (12.0-16.0) Hematocrit 38.9 % (37.0-47.0) Mean Corpuscular Volume 90 FL (80-99) Mean Corpuscular Hemoglobin 27.7 PG (27.0-31.0) Mean Corpuscular Hemoglobin Concent 30.9 G/DL (32.0-36.0) L Red Cell Distribution Width 13.0 % (11.6-14.8) Platelet Count 396 K/UL (150-450) Mean Platelet Volume 6.7 FL (6.5-10.1) Neutrophils (%) (Auto) 66.8 % (45.0-75.0) Lymphocytes (%) (Auto) 23.2 % (20.0-45.0) Monocytes (%) (Auto) 7.3 % (1.0-10.0) Eosinophils (%) (Auto) 1.8 % (0.0-3.0) Basophils (%) (Auto) 0.9 % (0.0-2.0) Sodium Level 142 MMOL/L (136-145) Potassium Level 4.2 MMOL/L (3.5-5.1) Chloride Level 103 MMOL/L (98-107) Carbon Dioxide Level 32 MMOL/L (21-32) Anion Gap 7 mmol/L (5-15) Blood Urea Nitrogen 12 mg/dL (7-18) Creatinine 1.1 MG/DL (0.55-1.30) Estimat Glomerular Filtration Rate > 60 mL/min (>60) Glucose Level 90 MG/DL (74-106) Calcium Level 9.5 MG/DL (8.5-10.1) Total Bilirubin 0.3 MG/DL (0.2-1.0) Aspartate Amino Transf (AST/SGOT) 23 U/L (15-37) Alanine Aminotransferase (ALT/SGPT) 35 U/L (12-78) Alkaline Phosphatase 80 U/L (46-116) Total Protein 7.6 G/DL (6.4-8.2) Albumin 3.3 G/DL (3.4-5.0) L Globulin 4.3 g/dL Albumin/Globulin Ratio 0.8 (1.0-2.7) L Vancomycin Level Trough 4.7 ug/mL (5.0-12.0) L Intake and Output0 01/10/21 01/11/21 19:00 07:00 Intake Total 500 ml Balance 500 ml Intake Oral 500 ml # Voids 6 Objective General appearance: alert, cooperative, no distress, appears stated age Head: Normocephalic, without obvious abnormality, atraumatic Eyes: conjunctivae/corneas clear. PERRL, EOM's int Throat: Lips, mucosa, and tongue normal. Teeth and gums normal Neck: supple, symmetrical, trachea midline, no adenopathy, thyroid: not enlarged, symmetric, no tenderness/mass/nodules, no carotid bruit and no JVD Lungs: clear to auscultation bilaterally Heart: regular rate and rhythm, S1, S2 normal, no murmur, click, rub or gallop Abdomen: soft, non-tender. Bowel sounds normal. No masses, no organomegaly Extremities: extremities normal, atraumatic, no cyanosis or edema Pulses: 2+ and symmetric Skin: Skin color, texture, turgor normal. No rashes or lesions Neurologic: Grossly normal Assessment/Plan Assessment/Plan Oropharynx: Unremarkable. No significant tonsillar enlargement. No peritonsillar abscess. Hypopharynx: Unremarkable. Larynx: Unremarkable. Normal epiglottis. Trachea: Unremarkable. Retropharyngeal space: Unremarkable. Submandibular/parotid glands: Unremarkable. Glands are normal in size. Thyroid: Unremarkable. No enlarged or calcified nodules. Bones/joints: No osseous erosions. No evidence of osteomyelitis. No acute fracture. Soft tissues: 2.2 x 2.1 x 1.2 cm fluid collection in the subcutaneous soft tissues overlying the left mandibular ramus, concerning for abscess. Adjacent subcutaneous stranding and skin thickening and a small soft tissue tract with foci of air extending from the abscess to the skin. Vasculature: Unremarkable as visualized. Lymph nodes: Unremarkable. No lymphadenopathy. Dental: Dental caries and periapical lucencies in the left mandibular molars, concerning for periodontal disease. Lung apices: Unremarkable as visualized. IMPRESSION: 1. 2.2 x 2.1 x 1.2 cm subcutaneous abscess overlying the left mandibular ramus, with small tract extending to the overlying skin. Adjacent subcutaneous stranding and skin thickening. 2. Dental caries and periapical lucencies in the left mandibular molars, concerning for periodontal disease. No mandibular erosion or evidence of osteomyelitis. -admit inpatient - IV abx - ID eval - surgery eval - follwo labs - resume home Bert Weinstein M.D. Jan 11, 2021 09:03
[2021-01-11] MEDS: Aspirin Baby 81mg ORAL SCH (09:25)
[2021-01-11] MEDS: Hyzaar 50-12.5mg tab ORAL SCH (09:26)
[2021-01-11] MEDS: Diclofenac 1% Gel 100gm TOPIC SCH ×4 (09:26→21:41)
[2021-01-11 12:00] VITALS: BP 130/66
[2021-01-11 16:00] VITALS: BP 139/63
--- NOTE | 2021-01-11 16:35 | Cardiology Report ---
APPROVED REPORT EKG Measurement Heart [id number] PA [id number] [id number] <Conclusion> Normal sinus rhythm Voltage criteria for left ventricular hypertrophy Nonspecific T wave abnormality Prolonged QT Abnormal ECG
--- NOTE | 2021-01-11 18:21 | Infectious Diseases Prog Note ---
Assessment/Plan Assessment/Plan ASSESSMENT AND PLAN: 1. left jaw/facial/neck abscess/cellulitis, CT with left mandibular/submandibular abscess dental infection noted on CT - s/p zosyn and vancomycin - day # 5 - change to augmentin plus doxycycline x 1 week starting today - continue management per surgery - s/p I/D abscess - clinically improved - monitor labs, wound culture negative - will need f/u with dentist 2. Hypertension. 3. Blood pressure treatment per primary care team. 4. Asthma. 5. Dental infection and dental caries. 6. Periodontal disease. 7. Possible dyslipidemia. 8. Possible GERD. 9. Continue treatment per primary consultants. 10. Orders were noted. 11. Allergies to NATALIE inhibitors, ibuprofen. 12. Social history is negative. 13. Family history is noncontributory. 14. MAR is noted. 15. Case was discussed with RN. 16. Case was discussed with the patient. Subjective Constitutional: Denies: fever HEENT: Denies: congestion Respiratory: Denies: shortness of breath Cardiovascular: Denies: chest pain Gastrointestinal/Abdominal: Denies: nausea, vomiting, diarrhea Genitourinary: Reports: other - no Neurologic: Denies: headache Psychiatric: Denies: depression Skin: Denies: rash Musculoskeletal: Reports: pain - less jaw pain Allergies: Coded Allergies: NATALIE INHIBITORS (Verified Allergy, Unknown, Anaphylaxis, 09/01/15) Swollen tongue, SOB IBUPROFEN (Verified Allergy, Unknown, ITCHING, 01/17/17) Objective Last 24 Hour Vital Signs Date Time Temp Pulse Resp B/P (MAP) Pulse Ox O2 Delivery O2 Flow Rate FiO2 01/11/21 16:00 98.3 63 20 139/63 (88) 99 01/11/21 12:00 98.0 61 18 130/66 (87) 99 01/11/21 09:26 123/71 01/11/21 09:25 67 123/71 01/11/21 09:00 Room Air 01/11/21 08:00 98.5 67 18 123/71 (88) 95 01/11/21 07:22 98.7 01/11/21 00:02 98.7 74 18 127/74 (91) 98 01/10/21 23:05 98.6 01/10/21 21:18 Room Air 01/10/21 20:16 78 138/78 01/10/21 19:54 98.6 74 18 137/87 (104) 98 Height (Feet): 5 Height (Inches): 3.00 Weight (Pounds): 180 General Appearance: no acute distress HEENT: normocephalic, atraumatic, anicteric, mucous membranes moist, other - less left jaw/neck/facial swelling and drainage Respiratory/Chest: lungs clear, normal breath sounds, no respiratory distress, no accessory muscle use Cardiovascular: normal rate, regular rhythm, no gallop/murmur Abdomen: normal bowel sounds, soft, non tender, no organomegaly, non distended Genitourinary: other - no espinosa Extremities: no cyanosis Skin: no rash Neurologic/Psychiatric: firer boiler II-XII grossly normal, alert, responsive Lymphatic: no neck adenopathy Musculoskeletal: no effusion Head/neck CT - IMPRESSION: 1. 2.2 x 2.1 x 1.2 cm subcutaneous abscess overlying the left mandibular ramus, with small tract extending to the overlying skin. Adjacent subcutaneous stranding and skin thickening. 2. Dental caries and periapical lucencies in the left mandibular molars, concerning for periodontal disease. No mandibular erosion or evidence of osteomyelitis. Chest x-ray - IMPRESSION: 1. No acute radiographic findings. 2. Heart appears borderline enlarged, however size is exaggerated by portable AP exam technique. Microbiology Date/Time Source Procedure Growth Status 01/07/21 22:00 Neck Gram Stain - Final Resulted 01/07/21 22:00 Neck Wound Culture - Preliminary NO GROWTH AFTER 48 HOURS Resulted 01/07/21 12:00 Blood Blood Culture - Preliminary NO GROWTH AFTER 4 DAYS Resulted Labs Test 01/09/21 05:30 01/10/21 09:15 01/10/21 11:05 White Blood Count 7.1 K/UL (4.8-10.8) 8.1 K/UL (4.8-10.8) Red Blood Count 4.02 M/UL (4.20-5.40) 4.33 M/UL (4.20-5.40) Hemoglobin 11.3 G/DL (12.0-16.0) 12.0 G/DL (12.0-16.0) Hematocrit 36.2 % (37.0-47.0) 38.9 % (37.0-47.0) Mean Corpuscular Volume 90 FL (80-99) 90 FL (80-99) Mean Corpuscular Hemoglobin 28.2 PG (27.0-31.0) 27.7 PG (27.0-31.0) Mean Corpuscular Hemoglobin Concent 31.3 G/DL (32.0-36.0) 30.9 G/DL (32.0-36.0) Red Cell Distribution Width 12.7 % (11.6-14.8) 13.0 % (11.6-14.8) Platelet Count 369 K/UL (150-450) 396 K/UL (150-450) Mean Platelet Volume 6.8 FL (6.5-10.1) 6.7 FL (6.5-10.1) Neutrophils (%) (Auto) 54.7 % (45.0-75.0) 66.8 % (45.0-75.0) Lymphocytes (%) (Auto) 35.1 % (20.0-45.0) 23.2 % (20.0-45.0) Monocytes (%) (Auto) 7.7 % (1.0-10.0) 7.3 % (1.0-10.0) Eosinophils (%) (Auto) 2.0 % (0.0-3.0) 1.8 % (0.0-3.0) Basophils (%) (Auto) 0.6 % (0.0-2.0) 0.9 % (0.0-2.0) Erythrocyte Sedimentation Rate 50 MM/HR (0-30) Prothrombin Time 11.2 SEC (9.30-11.50) Prothromb Time International Ratio 1.0 (0.9-1.1) Activated Partial Thromboplast Time 26 SEC (23-33) Sodium Level 143 MMOL/L (136-145) 142 MMOL/L (136-145) Potassium Level 3.5 MMOL/L (3.5-5.1) 4.2 MMOL/L (3.5-5.1) Chloride Level 105 MMOL/L (98-107) 103 MMOL/L (98-107) Carbon Dioxide Level 32 MMOL/L (21-32) 32 MMOL/L (21-32) Anion Gap 6 mmol/L (5-15) 7 mmol/L (5-15) Blood Urea Nitrogen 9 mg/dL (7-18) 12 mg/dL (7-18) Creatinine 0.9 MG/DL (0.55-1.30) 1.1 MG/DL (0.55-1.30) Estimat Glomerular Filtration Rate > 60 mL/min (>60) > 60 mL/min (>60) Glucose Level 92 MG/DL (74-106) 90 MG/DL (74-106) Calcium Level 9.3 MG/DL (8.5-10.1) 9.5 MG/DL (8.5-10.1) Total Bilirubin 0.2 MG/DL (0.2-1.0) 0.3 MG/DL (0.2-1.0) Aspartate Amino Transf (AST/SGOT) 15 U/L (15-37) 23 U/L (15-37) Alanine Aminotransferase (ALT/SGPT) 28 U/L (12-78) 35 U/L (12-78) Alkaline Phosphatase 74 U/L (46-116) 80 U/L (46-116) C-Reactive Protein, Quantitative 0.9 mg/dL (0.00-0.90) Total Protein 6.9 G/DL (6.4-8.2) 7.6 G/DL (6.4-8.2) Albumin 3.1 G/DL (3.4-5.0) 3.3 G/DL (3.4-5.0) Globulin 3.8 g/dL 4.3 g/dL Albumin/Globulin Ratio 0.8 (1.0-2.7) 0.8 (1.0-2.7) Amylase Level 58 U/L (25-115) Lipase 110 U/L (73-393) Vancomycin Level Trough 4.7 ug/mL (5.0-12.0) Current Medications Medications (Trade) Dose Ordered Sig/Codi Route PRN Reason Start Time Stop Time Status Last Admin Dose Admin Acetaminophen (Tylenol) 650 mg Q6H PRN ORAL For Headache 01/07/21 15:30 02/06/21 15:29 Acetaminophen/ Codeine Phosphate (Tylenol #3) 1 tab Q6H PRN ORAL For Pain 01/07/21 16:15 01/14/21 16:14 01/08/21 03:37 Albuterol/ Ipratropium (Combivent Respimat) 1 puff Q4H PRN INH Shortness of Breath 01/08/21 09:45 02/07/21 09:44 Aspirin (ASA) 81 mg DAILY ORAL 01/08/21 10:07 02/22/21 10:06 01/11/21 09:25 Diclofenac Sodium (Voltaren gel) 1 applic QID TOPIC 01/08/21 13:00 04/08/21 12:59 01/11/21 17:46 Ergocalciferol (Drisdol) 50,000 intlu ONCE A WEEK ORAL 01/08/21 12:00 02/07/21 11:59 01/08/21 14:57 Furosemide (Lasix) 20 mg DAILY ORAL 01/08/21 09:00 02/07/21 08:59 01/11/21 09:25 HCTZ/Losartan Potassium (Hyzaar 50-12.5mg) 1 tab DAILY ORAL 01/08/21 09:00 04/08/21 08:59 01/11/21 09:26 Labetalol HCl (Normodyne) 200 mg Q12HR ORAL 01/07/21 21:00 02/06/21 20:59 01/11/21 09:25 Lansoprazole (Prevacid) 30 mg DAILY ORAL 01/08/21 11:00 02/07/21 10:59 01/11/21 09:25 Ondansetron HCl (Zofran) 4 mg Q4H PRN IVP Nausea & Vomiting 01/07/21 15:30 02/06/21 15:29 Piperacillin Sod/ Tazobactam Sod 3.375 gm/Sodium Chloride 110 ml @ 27.5 mls/hr EVERY 8 HOURS IVPB 01/07/21 22:00 01/12/21 21:59 01/11/21 14:21 Tramadol HCl (Ultram) 50 mg Q6H PRN ORAL Severe Pain (Pain Scale 7-10) 01/07/21 20:00 01/14/21 19:59 01/11/21 15:25 Vancomycin HCl (Vanco pharmacy to dose) 1 ea DAILY PRN MISC Per rx protocol 01/07/21 15:15 02/06/21 15:14 Vancomycin HCl 750 mg/Dextrose 275 ml @ 183.333 mls/hr Q12H IVPB 01/11/21 00:00 01/16/21 00:00 01/11/21 11:15 Windy Zhou MD Jan 11, 2021 18:21
--- NOTE | 2021-01-11 19:45 | NUR ---
NURSE NOTES: Patient is awake, alert and oriented x4. On room air, breathing is even and unlabored. No complains of pain or distress noted. Dressings clean and intact with no drainage noted. IV right FA intact and patent with no bleeding noted. IVF running as ordered. Bed low and locked. Call light within reach.
[2021-01-11 20:00] VITALS: BP 127/67
[2021-01-11] MEDS: Doxycycline Monohydrate 100mg ORAL SCH (21:42)
[2021-01-11] MEDS: Augmentin 875mg Tab ORAL SCH (21:42)
--- NOTE | 2021-01-11 22:14 | Surgery Progress Note ---
Surgery Progress Note Subjective Additional Comments late entry as seen this AM improved no complaints ambulatory diet okay pain improved on abx Objective Last 24 Hour Vital Signs Date Time Temp Pulse Resp B/P (MAP) Pulse Ox O2 Delivery O2 Flow Rate FiO2 01/11/21 21:42 69 127/67 01/11/21 16:00 98.3 63 20 139/63 (88) 99 01/11/21 12:00 98.0 61 18 130/66 (87) 99 01/11/21 09:26 123/71 01/11/21 09:25 67 123/71 01/11/21 09:00 Room Air 01/11/21 08:00 98.5 67 18 123/71 (88) 95 01/11/21 07:22 98.7 01/11/21 00:02 98.7 74 18 127/74 (91) 98 01/10/21 23:05 98.6 I&O Intake and Output 01/10/21 01/11/21 19:00 07:00 Intake Total 500 ml Balance 500 ml Intake Oral 500 ml # Voids 6 Dressing: saturated Wound: clean Cardiovascular: RSR Respiratory: clear Abdomen: soft, flat, non-tender, present bowel sounds, non-distended Extremities: no edema, no tenderness, no cyanosis Plan Problems: (1) Submandibular abscess Assessment & Plan: Oropharynx: Unremarkable. No significant tonsillar enlargement. No peritonsillar abscess. Hypopharynx: Unremarkable. Larynx: Unremarkable. Normal epiglottis. Trachea: Unremarkable. Retropharyngeal space: Unremarkable. Submandibular/parotid glands: Unremarkable. Glands are normal in size. Thyroid: Unremarkable. No enlarged or calcified nodules. Bones/joints: No osseous erosions. No evidence of osteomyelitis. No acute fracture. Soft tissues: 2.2 x 2.1 x 1.2 cm fluid collection in the subcutaneous soft tissues overlying the left mandibular ramus, concerning for abscess. Adjacent subcutaneous stranding and skin thickening and a small soft tissue tract with foci of air extending from the abscess to the skin. Vasculature: Unremarkable as visualized. Lymph nodes: Unremarkable. No lymphadenopathy. Dental: Dental caries and periapical lucencies in the left mandibular molars, concerning for periodontal disease. Lung apices: Unremarkable as visualized. IMPRESSION: 1. 2.2 x 2.1 x 1.2 cm subcutaneous abscess overlying the left mandibular ramus, with small tract extending to the overlying skin. Adjacent subcutaneous stranding and skin thickening. 2. Dental caries and periapical lucencies in the left mandibular molars, concerning for periodontal disease. No mandibular erosion or evidence of osteomyelitis. (2) Abscess of face Assessment & Plan: 65-year-old female with infected tooth after broken now left submandibular maneuver abscess. Spontaneous drainage 3 mm opening drained at bedside. Packing and dressing initiated. Large amount of phlegmon and edema identified. No further purulent drainage. Cultures taken. On IV antibiotics. CT reviewed. Will monitor with local care dressings packing. If improved continue antibiotics and transition to oral for discharge. If worsening may need further incision potentially debridement and consideration of maxillofacial surgeon for tooth removal and washout. okay for diet. will need liquid likely with straw for a few days. abx as per ID trend labs will follow with recs thank you improved cellulitis improving no purulent drainage no fluctuance dressings daily dental f/u for extraction cont abx Viraj Meza Jan 11, 2021 22:14
[2021-01-12] VITALS: BP 108/52
[2021-01-12 04:00] VITALS: BP 124/68
[2021-01-12 05:14] LABS: BASOPHILS % (AUTO) 0.6 % (0.0-2.0); EOSINOPHILS % (AUTO) 1.9 % (0.0-3.0); HEMATOCRIT 38.5 % (37.0-47.0); LYMPHOCYTES % (AUTO) 32.5 % (20.0-45.0); MEAN CORPUSCULAR VOLUME 90 FL (80-99); MONOCYTES % (AUTO) 8.1 % (1.0-10.0); NEUTROPHILS % (AUTO) 56.9 % (45.0-75.0); PLATELET COUNT 408 K/UL (150-450); RED BLOOD COUNT 4.26 M/UL (4.20-5.40); RED CELL DISTRIBUTION WIDTH 13.3 % (11.6-14.8); WHITE BLOOD COUNT 7.9 K/UL (4.8-10.8)
[2021-01-12 05:34] LABS: ALANINE AMINOTRANSFERASE 35 U/L (12-78); ALBUMIN 3.3 G/DL (3.4-5.0); ALBUMIN/GLOBULIN RATIO 0.8 (1.0-2.7); ALKALINE PHOSPHATASE 76 U/L (46-116); ANION GAP 7 mmol/L (5-15); ASPARTATE AMINO TRANSFERASE 19 U/L (15-37); BILIRUBIN,TOTAL 0.2 MG/DL (0.2-1.0); BLOOD UREA NITROGEN 12 mg/dL (7-18); CALCIUM 9.5 MG/DL (8.5-10.1); CARBON DIOXIDE 31 MMOL/L (21-32); CHLORIDE 103 MMOL/L (98-107); CREATININE 0.9 MG/DL (0.55-1.30); POTASSIUM 3.9 MMOL/L (3.5-5.1); SODIUM 141 MMOL/L (136-145)
--- NOTE | 2021-01-12 07:22 | NUR ---
NURSE HAND-OFF: Important Events on Shift: Pain management Patient Status: Stable Diet: Regular Pending Orders: [] Pending Results/Labs:[] Pending MD notification:[] Latest Vital Signs: Temperature 98.1 , Pulse 62 , B/P 124 /68 , Respiratory Rate 18 , O2 SAT 97 , Room Air, O2 Flow Rate . Vital Sign Comment: VS stable Latest Montes Fall Score: 60 Fall Risk: High Risk Safety Measures: Call light Within Reach, Bed Alarm , Side Rails Side Rails x2, Bed position Low and Locked. Fall Precautions: Yellow Socks Patient Fall Education Report given to Xu BLACK.
--- NOTE | 2021-01-12 07:23 | NUR ---
NURSE NOTES: Received hand-off report from WAYNE Nation. Patient in stable condition, alert and oriented x4, breathing even and unlabored on room air, able to make needs known. Bed in lowest and locked position, bed alarm on, call light within reach, fall precautions followed and patient educated, patient verbalizes understanding, side rails upx2.
[2021-01-12 08:00] VITALS: BP 116/58
--- NOTE | 2021-01-12 08:20 | NUR ---
NURSE NOTES: Patient stated, "I do not take hyzaar together with my other medications, I want to take that medication later." Noted and will carry out
--- NOTE | 2021-01-12 08:34 | Internal Med Progress Note ---
Subjective Physician Name Bert Ortiz Attending Physician Bert Ortiz M.D. Current Medications Medications (Trade) Dose Ordered Sig/Codi Route PRN Reason Start Time Stop Time Status Last Admin Dose Admin Acetaminophen (Tylenol) 650 mg Q6H PRN ORAL For Headache 01/07/21 15:30 02/06/21 15:29 Acetaminophen/ Codeine Phosphate (Tylenol #3) 1 tab Q6H PRN ORAL For Pain 01/07/21 16:15 01/14/21 16:14 01/08/21 03:37 Albuterol/ Ipratropium (Combivent Respimat) 1 puff Q4H PRN INH Shortness of Breath 01/08/21 09:45 02/07/21 09:44 Amoxicillin/ Clavulanate Potassium (Augmentin) 875 mg EVERY 12 HOURS ORAL 01/11/21 21:00 01/18/21 20:59 01/11/21 21:42 Aspirin (ASA) 81 mg DAILY ORAL 01/08/21 10:07 02/22/21 10:06 01/11/21 09:25 Diclofenac Sodium (Voltaren gel) 1 applic QID TOPIC 01/08/21 13:00 04/08/21 12:59 01/11/21 21:41 Doxycycline Monohydrate (Doxycycline Monohydrate) 100 mg EVERY 12 HOURS ORAL 01/11/21 21:00 01/18/21 20:59 01/11/21 21:42 Ergocalciferol (Drisdol) 50,000 intlu ONCE A WEEK ORAL 01/08/21 12:00 02/07/21 11:59 01/08/21 14:57 Furosemide (Lasix) 20 mg DAILY ORAL 01/08/21 09:00 02/07/21 08:59 01/11/21 09:25 HCTZ/Losartan Potassium (Hyzaar 50-12.5mg) 1 tab DAILY ORAL 01/08/21 09:00 04/08/21 08:59 01/11/21 09:26 Labetalol HCl (Normodyne) 200 mg Q12HR ORAL 01/07/21 21:00 02/06/21 20:59 01/11/21 21:42 Lansoprazole (Prevacid) 30 mg DAILY ORAL 01/08/21 11:00 02/07/21 10:59 01/11/21 09:25 Ondansetron HCl (Zofran) 4 mg Q4H PRN IVP Nausea & Vomiting 01/07/21 15:30 02/06/21 15:29 01/11/21 22:59 Tramadol HCl (Ultram) 50 mg Q6H PRN ORAL Severe Pain (Pain Scale 7-10) 01/07/21 20:00 01/14/21 19:59 01/11/21 22:59 Allergies: Coded Allergies: NATALIE INHIBITORS (Verified Allergy, Unknown, Anaphylaxis, 09/01/15) Swollen tongue, SOB IBUPROFEN (Verified Allergy, Unknown, ITCHING, 01/17/17) Subjective left jaw pain better tolerating IV abx Objective Last Vital Signs Date Time Temp Pulse Resp B/P (MAP) Pulse Ox O2 Delivery O2 Flow Rate FiO2 01/12/21 04:00 98.1 62 18 124/68 (86) 97 01/11/21 21:00 Room Air Laboratory Tests Test 01/12/21 05:04 White Blood Count 7.9 K/UL (4.8-10.8) Red Blood Count 4.26 M/UL (4.20-5.40) Hemoglobin 12.0 G/DL (12.0-16.0) Hematocrit 38.5 % (37.0-47.0) Mean Corpuscular Volume 90 FL (80-99) Mean Corpuscular Hemoglobin 28.1 PG (27.0-31.0) Mean Corpuscular Hemoglobin Concent 31.1 G/DL (32.0-36.0) L Red Cell Distribution Width 13.3 % (11.6-14.8) Platelet Count 408 K/UL (150-450) Mean Platelet Volume 6.6 FL (6.5-10.1) Neutrophils (%) (Auto) 56.9 % (45.0-75.0) Lymphocytes (%) (Auto) 32.5 % (20.0-45.0) Monocytes (%) (Auto) 8.1 % (1.0-10.0) Eosinophils (%) (Auto) 1.9 % (0.0-3.0) Basophils (%) (Auto) 0.6 % (0.0-2.0) Sodium Level 141 MMOL/L (136-145) Potassium Level 3.9 MMOL/L (3.5-5.1) Chloride Level 103 MMOL/L (98-107) Carbon Dioxide Level 31 MMOL/L (21-32) Anion Gap 7 mmol/L (5-15) Blood Urea Nitrogen 12 mg/dL (7-18) Creatinine 0.9 MG/DL (0.55-1.30) Estimat Glomerular Filtration Rate > 60 mL/min (>60) Glucose Level 96 MG/DL (74-106) Calcium Level 9.5 MG/DL (8.5-10.1) Total Bilirubin 0.2 MG/DL (0.2-1.0) Aspartate Amino Transf (AST/SGOT) 19 U/L (15-37) Alanine Aminotransferase (ALT/SGPT) 35 U/L (12-78) Alkaline Phosphatase 76 U/L (46-116) Total Protein 7.4 G/DL (6.4-8.2) Albumin 3.3 G/DL (3.4-5.0) L Globulin 4.1 g/dL Albumin/Globulin Ratio 0.8 (1.0-2.7) L Intake and Output 01/11/21 01/12/21 19:00 07:00 Intake Total 1200 ml 360 ml Balance 1200 ml 360 ml Intake Oral 1200 ml 360 ml # Voids 2 Objective General appearance: alert, cooperative, no distress, appears stated age Head: Normocephalic, without obvious abnormality, atraumatic Eyes: conjunctivae/corneas clear. PERRL, EOM's int Throat: Lips, mucosa, and tongue normal. Teeth and gums normal Neck: supple, symmetrical, trachea midline, no adenopathy, thyroid: not enlarged, symmetric, no tenderness/mass/nodules, no carotid bruit and no JVD Lungs: clear to auscultation bilaterally Heart: regular rate and rhythm, S1, S2 normal, no murmur, click, rub or gallop Abdomen: soft, non-tender. Bowel sounds normal. No masses, no organomegaly Extremities: extremities normal, atraumatic, no cyanosis or edema Pulses: 2+ and symmetric Skin: Skin color, texture, turgor normal. No rashes or lesions Neurologic: Grossly normal Assessment/Plan Assessment/Plan Oropharynx: Unremarkable. No significant tonsillar enlargement. No peritonsillar abscess. Hypopharynx: Unremarkable. Larynx: Unremarkable. Normal epiglottis. Trachea: Unremarkable. Retropharyngeal space: Unremarkable. Submandibular/parotid glands: Unremarkable. Glands are normal in size. Thyroid: Unremarkable. No enlarged or calcified nodules. Bones/joints: No osseous erosions. No evidence of osteomyelitis. No acute fracture. Soft tissues: 2.2 x 2.1 x 1.2 cm fluid collection in the subcutaneous soft tissues overlying the left mandibular ramus, concerning for abscess. Adjacent subcutaneous stranding and skin thickening and a small soft tissue tract with foci of air extending from the abscess to the skin. Vasculature: Unremarkable as visualized. Lymph nodes: Unremarkable. No lymphadenopathy. Dental: Dental caries and periapical lucencies in the left mandibular molars, concerning for periodontal disease. Lung apices: Unremarkable as visualized. IMPRESSION: 1. 2.2 x 2.1 x 1.2 cm subcutaneous abscess overlying the left mandibular ramus, with small tract extending to the overlying skin. Adjacent subcutaneous stranding and skin thickening. 2. Dental caries and periapical lucencies in the left mandibular molars, concerning for periodontal disease. No mandibular erosion or evidence of osteomyelitis. -admit inpatient - IV abx - ID eval - surgery eval - follwo labs - resume home Bert Weinstein M.D. Jan 12, 2021 08:34
[2021-01-12] MEDS: Augmentin 875mg Tab ORAL SCH (08:42)
[2021-01-12] MEDS: Doxycycline Monohydrate 100mg ORAL SCH (08:42)
[2021-01-12] MEDS: Aspirin Baby 81mg ORAL SCH (08:42)
[2021-01-12] MEDS: traMADol 50mg tab ORAL PRN (08:52)
[2021-01-12] MEDS: Diclofenac 1% Gel 100gm TOPIC SCH ×3 (08:52→18:00)
[2021-01-12 10:00] VITALS: BP 152/82
[2021-01-12] MEDS: Hyzaar 50-12.5mg tab ORAL SCH (10:25)
--- NOTE | 2021-01-12 11:07 | NUR ---
*-*DISCHARGE PLANNING*-* PATIENT HAS BEEN REFERRED TO: [facility] P: [phone] S/W [place], WILL CALL BACK AFTER REVIEW
[2021-01-12 12:00] VITALS: BP 118/57
--- NOTE | 2021-01-12 12:56 | Surgery Progress Note ---
Surgery Progress Note Subjective Symptoms: improved, tolerating diet, voiding well, BM, pain decreased Objective Last 24 Hour Vital Signs Date Time Temp Pulse Resp B/P (MAP) Pulse Ox O2 Delivery O2 Flow Rate FiO2 01/12/21 10:25 152/82 01/12/21 10:00 65 19 152/82 (105) 100 01/12/21 09:22 98.4 01/12/21 09:00 Room Air 01/12/21 08:43 68 116/58 01/12/21 08:00 98.4 68 19 116/58 (77) 98 01/12/21 04:00 98.1 62 18 124/68 (86) 97 01/12/21 00:00 98.0 63 18 108/52 (70) 96 01/11/21 21:42 69 127/67 01/11/21 21:00 Room Air 01/11/21 20:00 98.0 69 20 127/67 (87) 97 01/11/21 16:00 98.3 63 20 139/63 (88) 99 I&O Intake and Output 01/11/21 01/12/21 19:00 07:00 Intake Total 1200 ml 360 ml Balance 1200 ml 360 ml Intake Oral 1200 ml 360 ml # Voids 2 Dressing: dry Wound: clean Cardiovascular: RSR Respiratory: clear Abdomen: soft, flat, non-tender, present bowel sounds, non-distended Extremities: no edema, no tenderness, no cyanosis Laboratory Tests Test 01/12/21 05:04 White Blood Count 7.9 K/UL (4.8-10.8) Red Blood Count 4.26 M/UL (4.20-5.40) Hemoglobin 12.0 G/DL (12.0-16.0) Hematocrit 38.5 % (37.0-47.0) Mean Corpuscular Volume 90 FL (80-99) Mean Corpuscular Hemoglobin 28.1 PG (27.0-31.0) Mean Corpuscular Hemoglobin Concent 31.1 G/DL (32.0-36.0) L Red Cell Distribution Width 13.3 % (11.6-14.8) Platelet Count 408 K/UL (150-450) Mean Platelet Volume 6.6 FL (6.5-10.1) Neutrophils (%) (Auto) 56.9 % (45.0-75.0) Lymphocytes (%) (Auto) 32.5 % (20.0-45.0) Monocytes (%) (Auto) 8.1 % (1.0-10.0) Eosinophils (%) (Auto) 1.9 % (0.0-3.0) Basophils (%) (Auto) 0.6 % (0.0-2.0) Sodium Level 141 MMOL/L (136-145) Potassium Level 3.9 MMOL/L (3.5-5.1) Chloride Level 103 MMOL/L (98-107) Carbon Dioxide Level 31 MMOL/L (21-32) Anion Gap 7 mmol/L (5-15) Blood Urea Nitrogen 12 mg/dL (7-18) Creatinine 0.9 MG/DL (0.55-1.30) Estimat Glomerular Filtration Rate > 60 mL/min (>60) Glucose Level 96 MG/DL (74-106) Calcium Level 9.5 MG/DL (8.5-10.1) Total Bilirubin 0.2 MG/DL (0.2-1.0) Aspartate Amino Transf (AST/SGOT) 19 U/L (15-37) Alanine Aminotransferase (ALT/SGPT) 35 U/L (12-78) Alkaline Phosphatase 76 U/L (46-116) Total Protein 7.4 G/DL (6.4-8.2) Albumin 3.3 G/DL (3.4-5.0) L Globulin 4.1 g/dL Albumin/Globulin Ratio 0.8 (1.0-2.7) L Plan Problems: (1) Submandibular abscess Assessment & Plan: Oropharynx: Unremarkable. No significant tonsillar enlargement. No peritonsillar abscess. Hypopharynx: Unremarkable. Larynx: Unremarkable. Normal epiglottis. Trachea: Unremarkable. Retropharyngeal space: Unremarkable. Submandibular/parotid glands: Unremarkable. Glands are normal in size. Thyroid: Unremarkable. No enlarged or calcified nodules. Bones/joints: No osseous erosions. No evidence of osteomyelitis. No acute fracture. Soft tissues: 2.2 x 2.1 x 1.2 cm fluid collection in the subcutaneous soft tissues overlying the left mandibular ramus, concerning for abscess. Adjacent subcutaneous stranding and skin thickening and a small soft tissue tract with foci of air extending from the abscess to the skin. Vasculature: Unremarkable as visualized. Lymph nodes: Unremarkable. No lymphadenopathy. Dental: Dental caries and periapical lucencies in the left mandibular molars, concerning for periodontal disease. Lung apices: Unremarkable as visualized. IMPRESSION: 1. 2.2 x 2.1 x 1.2 cm subcutaneous abscess overlying the left mandibular ramus, with small tract extending to the overlying skin. Adjacent subcutaneous stranding and skin thickening. 2. Dental caries and periapical lucencies in the left mandibular molars, concerning for periodontal disease. No mandibular erosion or evidence of osteomyelitis. (2) Abscess of face Assessment & Plan: 65-year-old female with infected tooth after broken now left submandibular maneuver abscess. Spontaneous drainage 3 mm opening drained at bedside. Packing and dressing initiated. Large amount of phlegmon and edema identified. No further purulent drainage. Cultures taken. On IV antibiotics. CT reviewed. Will monitor with local care dressings packing. If improved continue antibiotics and transition to oral for discharge. If worsening may need further incision potentially debridement and consideration of maxillofacial surgeon for tooth removal and washout. okay for diet. will need liquid likely with straw for a few days. abx as per ID trend labs will follow with recs thank you improved cellulitis improving no purulent drainage no fluctuance dressings daily dental f/u for extraction cont abx Viraj Meza Jan 12, 2021 12:56
--- NOTE | 2021-01-12 14:44 | NUR ---
*-*DISCHARGE PLANNING*-* PATIENT HAS BEEN REFERRED TO: [facility] P: [phone] S/W [place], WILL SERVICE PATIENT UPON DISCHARGE.
[2021-01-12 16:00] VITALS: BP 124/66
--- NOTE | 2021-01-12 18:25 | NUR ---
NURSE NOTES: Patient's daughter is on the way and have not yet arrived.
--- NOTE | 2021-01-12 18:40 | NUR ---
NURSE NOTES: Patient IV on right forearm 20g removed, no bleeding or s/s of infection, patient verbalizes that her pain is now at level 0, medication instruction papers were given, prescription by Dr. Ortiz photocopied, placed in chart and original presciption given to patient. Patient belongings list signed by patient, patient alert and oriented to baseline (x4), breathing even and unlabored on room air, resp 16/min, no acute distress noted.
--- NOTE | 2021-01-12 18:50 | NUR ---
NURSE NOTES: Patient was picked up by daughter, Lindsay, by private vehicle. Patient escorted via wheelchair with all patient belongings (including cane, smartphone, binder technician, and joseph), patient IV on right forearm 20g intact, gauze and tape place on site. Skin is clear, dry and intact throughout. No incidents noted.
--- NOTE | 2021-01-13 11:17 | Discharge Summary ---
Discharge Summary Discharge Summary _ Date of admission: 01/07/2021 Date of discharge: 01/12/[address] Ortiz History of Present Illness and Brief Hospital Course Ms. Meyer is a 65-year-old female with past medical history of asthma, and hypertension, who presented to ED severe pain on the left side of her face and jaw. Patient reported being seen by her dentist for possible tooth infection. Patient had been taking amoxicillin. The initial EKG showed normal sinus rhythm with left ventricular hypertrophy. White blood cell count was normal. Chest x- ray was also normal. CT of the neck revealed subcutaneous abscess overlying the left mandibular ramus with small tract extending to the overlying skin. Dental caries and periapical lucencies in the left mandibular molars were also identified concerning for periodontal disease. Patient underwent incision and drainage in the ER. Patient was admitted to the hospital for further management. Patient was continued on antibiotics. Wound culture and blood cultures showed no growth. Antibiotics were changed accordingly. Patient clinically improved on medical management and surgical intervention was not indicated. No purulent drainage or fluctuance was noted. Patient was instructed to follow-up with her dentist for possible extraction of the tooth. Patient was medically stable for discharge and was discharged home with home health on 01/12/2021. Consultants: Infectious disease Dr. Zhou Surgery Dr. Meza Discharge Condition Stable Discharge Activity As tolerated Discharge Diet Regular Final diagnoses Left jaw/facial/neck abscess/cellulitis Dental infection and dental caries Periodontal disease Hypertension History of asthma I have been assigned to dictate discharge summary for this account. I was not involved in the patient's management Ankit Carlisle Jan 13, 2021 11:17
== END 2021-01-12 18:50 | disposition home health service (06) | DRG 158 ==
LOC: EMR 11:37 → 4E 12:30 → EDBEDREQ 13:58
DX: K12.2 Cellulitis and abscess of mouth (principal); L03.211 Cellulitis of face; L02.11 Cutaneous abscess of neck; M27.2 Inflammatory conditions of jaws; K04.7 Periapical abscess without sinus; I10 Essential (primary) hypertension; J45.909 Unspecified asthma, uncomplicated; K21.9 Gastro-esophageal reflux disease without esophagitis; Z88.6 Allergy status to analgesic agent; Z88.8 Allergy status to other drugs, medicaments and biological substances; K05.6 Periodontal disease, unspecified
CPT/HCPCS: 36415; 70491; 71045; 80048; 80053; 80202; 81003; 82150; 82550; 83605; 83690; 83735; 83880; 84100; 84484; 85025; 85610; 85651; 85730; 86140; 87040; 87070; 87205; 93005; 96361; 96365; 96367; 96375; 99285; J2405; J7030